=== PATIENT | female | born 1985 | race Caucasian/White ===

== ENCOUNTER 2017-05-08 07:26 | Emergency (ER) | payer MEDICAID ==
[~2017-05-08] VITALS: Ht 144.8 cm; Wt 85.5 kg
[~2017-05-08 07:26] MED LIST: ACET500C5 PO; ADV10050 INH; CEPH-443 PO; FERR-31 PO; HYDR-762 PO; IBUP-1542 PO; IBUP800T25 PO; ONDA4TAB8 PO; PREN-29 PO
[2017-05-08 07:29] VITALS: Ht 144.8 cm; Wt 85.5 kg
[2017-05-08] MEDS ORDERED: DEXAMETHASONE 10 MG/ML 1 ML INJ IM STA (07:47)
[2017-05-08] MEDS ORDERED: IPRATROPIUM (NEB) 0.5 MG/2.5 ML AMP INH STA (07:47)
[2017-05-08] MEDS ORDERED: ALBUTEROL 0.5% (NEB) 2.5 MG/0.5 ML AMP INH STA (07:47)
--- NOTE | 2017-05-08 07:53 | ERD ---
ER Documentation Chief Complaint Date/Time DATE: 05/08/17 Chief Complaint Cough, Shortness of breath HPI The patient is a 32-year-old female with a history of asthma who presents to the Emergency Department with complaint of cough, wheezing and shortness of breath. The patient reports that approximately 3 days ago she developed a mildly productive cough of yellow colored sputum with exacerbation of her underlying asthma. Since, she has been experiencing intermittent wheezing and shortness of breath. She has been using her handheld inhaler at home, with moderate, though short-term relief. Last use of her inhaler was at 2:00 AM this morning. However, by 3:30 AM she noted recurrence of her symptoms. She admits mild nasal congestion, but otherwise denies any sore throat, ear pain, neck pain , neck stiffness or new rashes. Denies any sick contacts with similar symptoms. Denies any fevers, sweats, chills, nausea or vomiting. Denies recent travel, lower extremity edema, calf swelling, calf tenderness, recent surgeries, prolonged history of immobilization, or OCP use. Denies any history of DVT or PE. Denies any chest pain or palpitations. No other complaints at this time. ROS All systems reviewed and are negative except as per history of present illness. Medications Home Meds Active Scripts Albuterol Sulfate* (Proair HFA*) 8.5 Gm Hfa.aer.ad, 2 PUFF INH Q4, #1 INHALER Prov:SHAHID GOMEZ PA-C 05/08/17 Prednisone* (Prednisone*) 20 Mg Tab, 40 MG PO DAILY for 4 Days, TAB Prov:SHAHID GOMEZ PA-C 05/08/17 Cephalexin* (Keflex*) 500 Mg Capsule, 500 MG PO QID for 7 Days, CAP Prov:DONTAE GRANADOS PA-C 03/28/16 Ondansetron Hcl* (Zofran*) 4 Mg Tablet, 4 MG PO Q6H for NAUSEA AND/OR VOMITING, #30 TAB Prov:DONTAE GRANADOS PA-C 03/28/16 Hydrocodone Bit-Acetaminophen* ([place]*) 10-325 Mg Tablet, 1 TAB PO Q6 Y for PAIN , #10 TAB Prov:DONTAE GRANADOS PA-C 03/28/16 Ibuprofen* (Motrin*) 600 Mg Tab, 600 MG PO Q6, #30 TAB Prov:DONTAE GRANADOS PA-C 03/28/16 Acetaminophen* (Tylophen*) 500 Mg Capsule, 1 CAP PO Q6H Y for PAIN AND OR ELEVATED TEMP, #20 CAP Prov:CARLOZ HOYOS NP 10/10/15 Ibuprofen* (Ibuprofen*) 800 Mg Tab, 800 MG PO Q8, #20 0 Refills Prov:LEON OLIVEROS MD 08/16/15 Reported Medications Ferrous Sulfate (Iron Supplement) 1 Tab Tablet, 1 TAB PO DAILY 05/22/15 Vit-Fe Fumarate-FA* (Justo Tablet*) 1 Tab Tablet, 1 TAB PO DAILY, TAB 05/22/15 Salmeterol Xinaf-Fluticasone* (Advair*) 1 Inh Inha, 1 PUFF INH BID, INH 03/10/14 Allergies Allergies: Coded Allergies: No Known Allergy (Verified , 05/08/17) PMhx/Soc History of Surgery: No Anesthesia Reaction: No Hx Neurological Disorder: No Hx Respiratory Disorders: Yes (asthma) Hx Cardiac Disorders: No Hx Psychiatric Problems: No Hx Miscellaneous Medical Probl: No Hx Alcohol Use: No Hx Substance Use: No Hx Tobacco Use: No Physical Exam Vitals Vital Signs Date Time Temp Pulse Resp B/P Pulse Ox O2 Delivery O2 Flow Rate FiO2 05/08/17 08:14 94 18 96 21 05/08/17 07:29 97.4 97 20 137/80 97 Physical Exam GENERAL: Well-developed, well-nourished, female, in no acute distress. HEENT: Head is normocephalic, atraumatic. No scleral pallor or icterus. Pupils equal, round and reactive to light. Extraocular movements intact. Conjunctiva pink. Nares are patent bilaterally. Bilaterally tympanic membranes are clear with no evidence of erythema, effusion or dulling of the light reflex. Moist mucous membranes. No pharyngeal erythema or exudates. Uvula is midline. No trismus. No stridor. No excessive drooling. Phonation is normal. No brawny induration. No similar swelling. NECK: Supple. No masses, no tenderness, no lymphadenopathy. Trachea midline. No nuchal rigidity. No meningismus. Full range of motion. RESPIRATORY: Decreased breath sounds at the bases with diffuse wheezes bilaterally. No rales or rhonchi. No accessory muscle use. Symmetric expansion. No nasal flaring. Speaking in full sentences. No respiratory distress. CARDIOVASCULAR: Regular rate and rhythm. S1 and S2 normal. No murmurs, rubs, or gallops. Distal pulses are palpable, 2+ bilaterally. Capillary refill is less than 2 seconds. GASTROINTESTINAL: Abdomen is soft, non-tender, and non-distended. Normal bowel sounds. BACK: No midline tenderness. EXTREMITIES: No clubbing, cyanosis, or edema. Normal skin perfusion. Joints non- tender, no joint effusion. Full range of motion of both the upper and lower extremities bilaterally. Muscle tone is normal. No focal swelling or erythema. Swelling or calf tenderness. No lower extremity edema. NEUROLOGIC: The patient is alert, awake, and oriented x 3. No focal neurologic deficits. INTEGUMENT: Skin is intact. Warm and dry. No rashes, no petechiae present. PSYCHIATRIC: Cooperative; appropriate. Results 24 hrs Current Medications Medications (Trade) Dose Ordered Sig/Love Route PRN Reason Start Time Stop Time Status Last Admin Dose Admin Albuterol (Proventil 0.5% (Neb)) 10 mg ONCE STAT INH 05/08/17 07:47 05/08/17 07:49 DC 05/08/17 08:13 Ipratropium [place] (Atrovent 0.02% (Neb)) 1 mg ONCE STAT INH 05/08/17 07:47 05/08/17 07:49 DC 05/08/17 08:13 Dexamethasone (Decadron) 10 mg ONCE STAT IM 05/08/17 07:47 05/08/17 07:49 DC 05/08/17 08:04 Procedures/MDM DIAGNOSTIC TESTS AND INTERPRETATION: PROCEDURE: XR Chest. CLINICAL INDICATION: Shortness of breath and asthma TECHNIQUE: AP view of the chest was performed. COMPARISON: 07/20/2014 FINDINGS: The lungs are clear. The lung volumes are normal. The heart size is normal. The osseous structures are intact. IMPRESSION: Negative examination. .Marta Nicole MD, MD Date Time Electronically viewed and signed by .Marta Nicole MD, on 05/08/2017 08:34 EMERGENCY DEPARTMENT COURSE: The patient was stable throughout ED course. I kept the patient informed of laboratory and diagnostic imaging results throughout the ED course. Patient is placed into ED observation status immediately after initial evaluation to determine whether the patient will require admission or can be safely discharged. The patient was placed on a continuous Albuterol treatment at 10 mg/hr, Atrovent 1 mg/hr set for the next hour. Patient will be repeatedly and frequently evaluated over the duration of the treatment. Currently the patient demonstrates moderate improvement in symptoms. Decadron 10 mg IM administered. Chest x-ray performed. On reevaluation, the patient reports significant improvement in symptoms. Lungs are now clear to auscultation bilaterally with no rales, no rhonchi, no wheezing. No accessory muscle use, no nasal flaring, no signs of respiratory distress. MEDICAL DECISION MAKING: This is a 32-year-old female presenting to the Emergency Department with recent onset of cough, nasal congestion, wheezing and shortness of breath. Patient noted to have wheezing auscultated throughout bilateral lung burns on physical examination, though with no rales, no rhonchi. She was placed in a room and observed. The patient was given a continuous 1-hour breathing treatment of Albuterol and Atrovent by respiratory therapy. Decadron 10 mg IM was also administered. After rest, a period of observation, medication and breathing treatment, the patient had resolution of her wheezing, and felt significantly better. Her lungs are now clear to auscultation bilaterally, with no rales, rhonchi or wheezing. No intercostal retractions, nasal flaring, accessory muscle use or signs of respiratory distress. Chest x-ray with no acute cardiopulmonary abnormalities. Upon review and interpretation of the patient's presentation and overall ER course, I believe the patient's symptoms to be consistent with acute bronchitis (like viral in etiology) and asthma exacerbation. Clinical presentation is not consistent with pneumonia, acute coronary syndrome, secondary bacterial infection, pulmonary embolism, acute respiratory distress syndrome, status asthmaticus, sinusitis, otitis media, otitis externa, pharyngitis, airway obstruction, anaphylaxis, pneumothorax, acute/surgical abdomen, sepsis, dehydration or meningitis. At this time, the patient is in stable condition, and no longer experiencing any wheezing or shortness of breath, and therefore can be discharged home with prescriptions for a short course of prednisone and ProAir HFA and strict return precautions for signs of deteriorating or worsening symptoms. She is advised to follow-up with her primary care provider for reevaluation and further management within 2-3 days, or return to the ER sooner for any new or worsening symptoms. I shared my medical decision making and plan with the patient at length and in great detail, and she verbally understands and agrees with the plan for further observation and care as an outpatient. At the time of discharge, all questions were answered. Departure Diagnosis: Primary Impression: Asthma with acute exacerbation Asthma severity: unspecified severity Qualified Code: J45.901 - Asthma with acute exacerbation, unspecified asthma severity Additional Impression: Acute bronchitis Bronchitis organism: unspecified organism Qualified Code: J20.9 - Acute bronchitis, unspecified organism Condition: Stable Patient Instructions: Asthma, Acute (Adult), Bronchitis, No Antibiotic (Adult) , Understanding Asthma Additional Instructions: Llame al doctor MAANA y kay joanna REINALDO PARA DENTRO DE 2-3 EATON.Dgale a la secretaria que nosotros le instruimos hacer esta reinaldo.Avise o llame si moya condicin se empeora antes de la reinaldo. Regresa aqui si peor o no mejor. SHAHID GOMEZ PA-C May 08, 2017 07:53
--- NOTE | 2017-05-08 08:35 | RADRPT ---
PROCEDURE: XR Chest. CLINICAL INDICATION: Shortness of breath and asthma TECHNIQUE: AP view of the chest was performed. COMPARISON: 07/20/2014 FINDINGS: The lungs are clear. The lung volumes are normal. The heart size is normal. The osseous structure s are intact. IMPRESSION: Negative examination. RPTAT: QQ .Marta Nicole MD, Date Time Electronically viewed and signed by .Marta Nicole MD, on 05/08/2017 08:34 .M/
[2017-05-08] MEDS ORDERED: ALBU8.5H3 INH (09:22)
[2017-05-08] MEDS ORDERED: PRED20TA PO (09:22)
[2017-05-08 09:29] VITALS: BP 128/67; PULSE 92; RESP 20
== END 2017-05-08 09:30 | disposition home or self-care (01) ==
LOC: E/R 07:26
DX: J45.901 Unspecified asthma with (acute) exacerbation (principal); J20.9 Acute bronchitis, unspecified
CPT/HCPCS: 71010; 94644; 96372; J1100; Z7502; Z7610

== ENCOUNTER 2017-05-16 13:12 | Emergency (ER) | payer MEDICAID ==
[~2017-05-16] VITALS: Ht 154.9 cm; Wt 84.0 kg
[~2017-05-16 13:12] MED LIST changes: +ALBU8.5H3 INH; +PRED20TA PO
[2017-05-16 13:14] VITALS: Ht 154.9 cm; Wt 84.0 kg
[2017-05-16] MEDS ORDERED: IPRATROPIUM (NEB) 0.5 MG/2.5 ML AMP NEB STA (14:07)
[2017-05-16] MEDS ORDERED: ALBUTEROL 0.5% (NEB) 2.5 MG/0.5 ML AMP INH STA (14:07)
[2017-05-16] MEDS ORDERED: METHYLPREDNISOLONE 125 MG INJ IM ONE (14:30)
--- NOTE | 2017-05-16 14:30 | ERD ---
ER Documentation Chief Complaint Date/Time DATE: 05/16/17 TIME: 14:29 Chief Complaint Pt with SOB X 3 days. Pt asthmatic HPI 32-year-old female history of asthma presents with cough, nasal congestion and shortness of breath starting yesterday. She complains of shortness of breath despite using her inhaler. She has not had any documented fevers but reports tactile fevers. ROS All systems reviewed and are negative except as per history of present illness. Medications Home Meds Active Scripts Albuterol Sulfate* (Proair HFA*) 8.5 Gm Hfa.aer.ad, 2 PUFF INH Q4, #1 INHALER Prov:YOON SAVAGE PA-C 05/16/17 Prednisone* (Prednisone*) 20 Mg Tab, 40 MG PO DAILY for 4 Days, TAB Prov:YOON SAVAGE PA-C 05/16/17 Amoxicillin/Potassium Clav (Amox-Clav 875-125 mg Tablet) 875-125 mg Tab, 1 TAB PO BID for 7 Days, #14 TAB Prov:YOON SAVAGE PA-C 05/16/17 Albuterol Sulfate* (Proair HFA*) 8.5 Gm Hfa.aer.ad, 2 PUFF INH Q4, #1 INHALER Prov:SHAHID GOMEZ PA-C 05/08/17 Prednisone* (Prednisone*) 20 Mg Tab, 40 MG PO DAILY for 4 Days, TAB Prov:SHAHID GOMEZ PA-C 05/08/17 Cephalexin* (Keflex*) 500 Mg Capsule, 500 MG PO QID for 7 Days, CAP Prov:DONTAE GRANADOS PA-C 03/28/16 Ondansetron Hcl* (Zofran*) 4 Mg Tablet, 4 MG PO Q6H for NAUSEA AND/OR VOMITING, #30 TAB Prov:DONTAE GRANADOS PA-C 03/28/16 Hydrocodone Bit-Acetaminophen* ([place]*) 10-325 Mg Tablet, 1 TAB PO Q6 Y for PAIN , #10 TAB Prov:DONTAE GRANADOS PA-C 03/28/16 Ibuprofen* (Motrin*) 600 Mg Tab, 600 MG PO Q6, #30 TAB Prov:DONTAE GRANADOS PA-C 03/28/16 Acetaminophen* (Tylophen*) 500 Mg Capsule, 1 CAP PO Q6H Y for PAIN AND OR ELEVATED TEMP, #20 CAP Prov:CARLOZ HOYOSLiliana TACK COVERER 10/10/15 Ibuprofen* (Ibuprofen*) 800 Mg Tab, 800 MG PO Q8, #20 0 Refills Prov:LEON OLIVEROS MD 08/16/15 Reported Medications Ferrous Sulfate (Iron Supplement) 1 Tab Tablet, 1 TAB PO DAILY 05/22/15 Vit-Fe Fumarate-FA* (Justo Tablet*) 1 Tab Tablet, 1 TAB PO DAILY, TAB 05/22/15 Salmeterol Xinaf-Fluticasone* (Advair*) 1 Inh Inha, 1 PUFF INH BID, INH 03/10/14 Allergies Allergies: Coded Allergies: No Known Allergy (Verified , 05/08/17) PMhx/Soc History of Surgery: No Anesthesia Reaction: No Hx Neurological Disorder: No Hx Respiratory Disorders: Yes (asthma ) Hx Cardiac Disorders: No Hx Psychiatric Problems: No Hx Miscellaneous Medical Probl: No Hx Alcohol Use: No Hx Substance Use: No Hx Tobacco Use: No Physical Exam Vitals Vital Signs Date Time Temp Pulse Resp B/P Pulse Ox O2 Delivery O2 Flow Rate FiO2 05/16/17 16:04 119 22 95 Room Air 05/16/17 14:39 115 22 95 21 05/16/17 13:14 98.7 115 22 142/73 95 Physical Exam General: Well-developed, well-nourished. The patient appears in no acute distress. HEENT: Head is normocephalic, atraumatic. No scleral icterus. Pupils are equal , round, and reactive. Oral mucous membranes are moist. No pharyngeal erythema. Neck: Supple. Nontender. Lungs: Wheezing bilaterally, no rales or rhonchi. Heart: Regular rate and rhythm. S1 and S2 are normal. No murmurs, gallops, or rubs. Abdomen: Soft, nontender, nondistended. Bowel sounds are normoactive. Extremities: No clubbing or cyanosis. Normal pulses. Moving extremities x 4. No weakness. Neurologic: Alert and oriented 3. No focal deficits. Skin: Normal turgor. No rash or lesions. Results 24 hrs Current Medications Medications (Trade) Dose Ordered Sig/Love Route PRN Reason Start Time Stop Time Status Last Admin Dose Admin Ipratropium [place] (Atrovent 0.02% (Neb)) 1 mg ONCE STAT NEB 05/16/17 14:07 05/16/17 14:11 DC 05/16/17 14:39 Albuterol (Proventil 0.5% (Neb)) 10 mg ONCE STAT INH 05/16/17 14:07 05/16/17 14:11 DC 05/16/17 14:39 Methylprednisolone Sodium Succinate (Solu-Medrol) 125 mg ONCE ONCE IM 05/16/17 14:30 05/16/17 14:31 DC 05/16/17 14:22 DIAGNOSTIC IMAGING REPORT Patient: YVONNE SOLORIO : 1985 Age: 32 Sex: F MR #: [id number] DOS: 05/16/17 1407 Ordering MD: YOON SAVAGE PA-C Location: [facility] Room/Bed: PROCEDURE: XR Chest. CLINICAL INDICATION: chest pain, cough TECHNIQUE: Single frontal view of the chest was obtained COMPARISON: 07/20/14 FINDINGS: The heart and mediastinum are within normal limits. The lungs are clear. There is no pleural effusion or pneumothorax. RPTAT: AA IMPRESSION: No acute disease. .Ap Johnston MD, MD Date Time Electronically viewed and signed by .Ap Johnston MD, MD on 05/16/2017 14: 38 Procedures/MDM 32 yo male comes in with an asthma exacerbation, with cough for the past week. She has been having URI symptoms for over a week now. Chest x-ray was unremarkable, no evidence of pneumonia. Patient will be treated for bronchitis given her symptoms for approximately a week. She appears well, nontoxic, and does not have any signs of any respiratory distress. There is no evidence of hypoxia vitals are stable. She was observed in emergency department, heart rate was reduced to 98. Suspicion for pulmonary embolus, dissection, acute coronary syndrome is low. Departure Diagnosis: Primary Impression: Asthma attack Additional Impression: Cough Condition: Good YOON SAVAGE PA-C May 16, 2017 14:30
--- NOTE | 2017-05-16 14:38 | RADRPT ---
PROCEDURE: XR Chest. CLINICAL INDICATION: chest pain, cough TECHNIQUE: Single frontal view of the chest was obtained COMPARISON: 07/20/14 FINDINGS: The heart and mediastinum are within normal limits. The lungs are clear. There is no pleural effusion or pneumothorax. RPTAT: AA IMPRESSION: No acute disease. .Ap Johnston MD, MD Date Time Electronically viewed and signed by .Ap Johnston MD, on 05/16/2017 14:38 .S/
[2017-05-16] MEDS ORDERED: ALBU8.5H3 INH (15:46)
[2017-05-16] MEDS ORDERED: AMOX1TAB10 PO (15:46)
[2017-05-16] MEDS ORDERED: PRED20TA PO (15:46)
[2017-05-16 16:04] VITALS: PULSE 119; RESP 22
== END 2017-05-16 16:06 | disposition home or self-care (01) ==
LOC: FTE 13:12
DX: J45.901 Unspecified asthma with (acute) exacerbation (principal); R05 Cough
CPT/HCPCS: 71010; 94644; 96372; J2930; Z7502; Z7610

== ENCOUNTER 2017-09-24 09:18 | Emergency (ER) | payer MEDICAID ==
[~2017-09-24] VITALS: Ht 162.6 cm; Wt 86.5 kg
[~2017-09-24 09:18] MED LIST changes: +AMOX1TAB10 PO
[2017-09-24 09:21] VITALS: Ht 162.6 cm; Wt 86.5 kg
[2017-09-24] MEDS ORDERED: IPRATROPIUM (NEB) 0.5 MG/2.5 ML AMP INH STA (09:55)
[2017-09-24] MEDS ORDERED: predniSOLONE (3 MG/ML) CUP PO STA (09:55)
[2017-09-24] MEDS ORDERED: ALBUTEROL 0.5% (NEB) 2.5 MG/0.5 ML AMP INH STA (09:55)
[2017-09-24] MEDS ORDERED: ALBU8.5H3 INH (12:02)
[2017-09-24] MEDS ORDERED: PRED20TA PO (12:02)
[2017-09-24] MEDS ORDERED: FLUT9.9S NASAL (12:03)
[2017-09-24] MEDS ORDERED: MONT10TA21 PO (12:03)
[2017-09-24] MEDS ORDERED: CETI10CA PO (12:03)
[2017-09-24] MEDS ORDERED: UDROBDM PO (12:05)
[2017-09-24 12:13] VITALS: BP 120/70; PULSE 87; RESP 18; TEMP 98.1
--- NOTE | 2017-09-24 12:13 | ERD ---
ER Documentation Chief Complaint Chief Complaint cough , chest congestion x 1 week HPI This a 32-year-old female who presents the emergency department today complaining of cough for the past week. States that she has itchy eyes and ears. Has a history of asthma and that she uses a ProAir inhaler and Singulair but has been out of her medications for the past 3 days. Denies any fevers or chills. ROS All systems reviewed and are negative except as per history of present illness. Medications Home Meds Active Scripts Guaifenesin-Dextromethorphan* (Robitussin* DM) 100MG/10MG/5ML Syrup, 10 ML PO Q6H Y for COUGH for 5 Days, ML Prov:DONTAE GRANADOS PA-C 09/24/17 Cetirizine Hcl* (Zyrtec*) 10 Mg Capsule, 10 MG PO DAILY, #14 TAB.CHEW Prov:DONTAE GRANADOS PA-C 09/24/17 Fluticasone Propionate (Flonase Allergy Relief) 9.9 Ml [place].susp, 2 SPRAY NASAL DAILY, #1 BOTTLE TO EACH NOSTRIL Prov:DONTAE GRANADOS PA-C 09/24/17 Montelukast Sodium* (Singulair*) 10 Mg Tablet, 10 MG PO QHS, #30 TAB Prov:DONTAE GRANADOS PA-C 09/24/17 Albuterol Sulfate* (Proair HFA*) 8.5 Gm Hfa.aer.ad, 2 PUFF INH Q4, #1 INHALER Prov:DONTAE GRANADOS PA-C 09/24/17 Prednisone* (Prednisone*) 20 Mg Tab, 40 MG PO DAILY for 4 Days, TAB Prov:DONTAE GRANADOS PA-C 09/24/17 Albuterol Sulfate* (Proair HFA*) 8.5 Gm Hfa.aer.ad, 2 PUFF INH Q4, #1 INHALER Prov:YOON SAVAGE PA-C 05/16/17 Prednisone* (Prednisone*) 20 Mg Tab, 40 MG PO DAILY for 4 Days, TAB Prov:YOON SAVAGE PA-C 05/16/17 Amoxicillin/Potassium Clav (Amox-Clav 875-125 mg Tablet) 875-125 mg Tab, 1 TAB PO BID for 7 Days, #14 TAB Prov:YOON SAVAGE PA-C 05/16/17 Albuterol Sulfate* (Proair HFA*) 8.5 Gm Hfa.aer.ad, 2 PUFF INH Q4, #1 INHALER Prov:SHAHID GOMEZ PA-C 05/08/17 Prednisone* (Prednisone*) 20 Mg Tab, 40 MG PO DAILY for 4 Days, TAB Prov:SHAHID GOMEZ PA-C 05/08/17 Cephalexin* (Keflex*) 500 Mg Capsule, 500 MG PO QID for 7 Days, CAP Prov:DONTAE GRANADOSC 03/28/16 Ondansetron Hcl* (Zofran*) 4 Mg Tablet, 4 MG PO Q6H for NAUSEA AND/OR VOMITING, #30 TAB Prov:DONTAE GRANADOSC 03/28/16 Hydrocodone Bit-Acetaminophen* ([place]*) 10-325 Mg Tablet, 1 TAB PO Q6 Y for PAIN , #10 TAB Prov:DONTAE GRANADOSC 03/28/16 Ibuprofen* (Motrin*) 600 Mg Tab, 600 MG PO Q6, #30 TAB Prov:DONTAE GRANADOSC 03/28/16 Acetaminophen* (Tylophen*) 500 Mg Capsule, 1 CAP PO Q6H Y for PAIN AND OR ELEVATED TEMP, #20 CAP Prov:CARLOZ HOYOS NP 10/10/15 Ibuprofen* (Ibuprofen*) 800 Mg Tab, 800 MG PO Q8, #20 0 Refills Prov:LEON OLIVEROS MD 08/16/15 Reported Medications Ferrous Sulfate (Iron Supplement) 1 Tab Tablet, 1 TAB PO DAILY 05/22/15 Vit-Fe Fumarate-FA* (Justo Tablet*) 1 Tab Tablet, 1 TAB PO DAILY, TAB 05/22/15 Salmeterol Xinaf-Fluticasone* (Advair*) 1 Inh Inha, 1 PUFF INH BID, INH 03/10/14 Allergies Allergies: Coded Allergies: No Known Allergy (Verified , 05/08/17) PMhx/Soc Medical and Surgical Hx: pt denies Surgical Hx History of Surgery: No Anesthesia Reaction: No Hx Neurological Disorder: No Hx Respiratory Disorders: Yes (asthma ) Hx Cardiac Disorders: No Hx Psychiatric Problems: No Hx Miscellaneous Medical Probl: No Hx Alcohol Use: No Hx Substance Use: No Hx Tobacco Use: No Smoking Status: Never smoker Physical Exam Vitals Vital Signs Date Time Temp Pulse Resp B/P Pulse Ox O2 Delivery O2 Flow Rate FiO2 09/24/17 10:34 92 20 96 21 09/24/17 09:21 98.1 95 18 109/71 95 Physical Exam Const: NAD Head: Atraumatic Eyes: Normal Conjunctiva erythema. Watering. ENT: TMs normal. Nose mild drainage. Throat erythema no exudate no vesicles Neck: Full range of motion..~ No meningismus. Resp: Diffuse wheezing bilaterally in all lung burns. Cardio: Regular rate and rhythm, no murmurs Abd: Soft, non tender, non distended. Normal bowel sounds Skin: No petechiae or rashes Back: No midline or flank tenderness Ext: No cyanosis, or edema Neur: Awake and alert Psych: Normal Mood and Affect Results 24 hrs Current Medications Medications (Trade) Dose Ordered Sig/Love Route PRN Reason Start Time Stop Time Status Last Admin Dose Admin Albuterol (Proventil 0.5% (Neb)) 5 mg ONCE STAT INH 09/24/17 09:55 09/24/17 09:57 DC 09/24/17 09:55 Ipratropium [place] (Atrovent 0.02% (Neb)) 1 mg ONCE STAT INH 09/24/17 09:55 09/24/17 09:57 DC 09/24/17 09:55 Prednisolone (Prelone) 173 mg ONCE STAT PO 09/24/17 09:55 09/24/17 09:57 DC 09/24/17 10:07 Procedures/MDM This is a 32-year-old female presents the emergency department today complaining of cough for the past week. She also indicated that she has had itchy eyes and ears for the past week. Patient is a history of asthma and has been out of her asthma medications for the past 3 days. On physical exam patient had diffuse wheezing bilaterally in all lung burns. She is afebrile and otherwise well-appearing. Her oxygen saturation 95%. Do not feel she requires a chest x-ray at this time. I have low suspicion for pneumonia, PE, abscess, pleural effusion, pneumothorax. Patient was given a 1 hour continuous breathing treatment as well as prednisone here in the emergency department and she reported feeling significantly better. Her symptoms at this time is consistent with asthma exacerbation. She was given a prescription for Robitussin, Zyrtec, Flonase, and a short course of prednisone in addition to refills for her Singulair and ProAir inhaler. Do not feel that she requires antibiotics at this time. At this time the patient is stable for discharge and outpatient management. Patient should follow up with their PCP in the next 1-2 days. They may return to the emergency department sooner for any persistent or worsening of symptoms. Patient understood and agreed with the plan. Discussed the patient with Dr. Burt and he is in agreement with the plan Departure Diagnosis: Primary Impression: Asthma exacerbation Asthma severity: unspecified severity Asthma persistence: unspecified Qualified Code: J45.901 - Exacerbation of asthma, unspecified asthma severity, unspecified whether persistent Condition: Fair Patient Instructions: Asthma, Acute (Adult) Referrals: your PCP Additional Instructions: Llame al doctor MAANA y kay joanna REINALDO PARA DENTRO DE 1-2 EATON.Dgale a la secretaria que nosotros le instruimos hacer esta reinaldo.Avise o llame si moya condicin se empeora antes de la reinaldo. Regresa aqui si peor o no mejor. Take your usual asthma medications. take prednisone Take Zyrtec and Flonase to help with itchy eyes and ears. Take Robitussin for cough DONTAE GRANADOS PA-C Sep 24, 2017 12:13
== END 2017-09-24 12:14 | disposition home or self-care (01) ==
LOC: FTE 09:18
DX: J45.901 Unspecified asthma with (acute) exacerbation (principal)
CPT/HCPCS: 94664; J7510; Z7502; Z7610

== ENCOUNTER 2017-12-05 10:34 | Emergency (ER) | END 2017-12-05 13:39 | disposition home or self-care (01) ==

== ENCOUNTER 2018-03-27 13:31 | Emergency (ER) | END 2018-03-27 14:56 | disposition home or self-care (01) ==

== ENCOUNTER 2018-06-23 01:05 | Emergency (ER) | END 2018-06-23 05:25 | disposition home or self-care (01) ==

== ENCOUNTER 2018-08-07 09:11 | Emergency (ER) | END 2018-08-07 11:30 | disposition home or self-care (01) ==

== ENCOUNTER 2018-09-13 09:53 | Emergency (ER) | END 2018-09-13 13:07 | disposition home or self-care (01) ==

== ENCOUNTER 2018-10-10 10:06 | Emergency (ER) | payer MEDICAID ==
[~2018-10-10] VITALS: Ht 167.6 cm; Wt 90.2 kg
[~2018-10-10 10:06] MED LIST changes: -ACET500C5 PO; -ALBU8.5H3 INH; +ALBU8.5H8 INH; -AMOX1TAB10 PO; +AZIT250T PO; -CEPH-443 PO; +CETI10CA PO; -FERR-31 PO; -HYDR-762 PO; -IBUP-1542 PO; -IBUP800T25 PO; -ONDA4TAB8 PO; -PREN-29 PO
[2018-10-10 10:14] VITALS: Ht 167.6 cm; Wt 90.2 kg
[2018-10-10] MEDS ORDERED: IPRATROPIUM (NEB) 0.5 MG/2.5 ML AMP NEB STA ×2 (10:31→11:37)
[2018-10-10] MEDS ORDERED: METHYLPREDNISOLONE 125 MG INJ IM STA (10:31)
[2018-10-10] MEDS ORDERED: ALBUTEROL 0.5% (NEB) 2.5 MG/0.5 ML AMP INH STA ×2 (10:31→11:37)
[2018-10-10] MEDS ORDERED: ALBU8.5H8 INH (12:47)
[2018-10-10] MEDS ORDERED: PRED20TA PO (12:47)
--- NOTE | 2018-10-10 12:53 | ERD ---
ER Documentation Chief Complaint Chief Complaint Complains of SOB and cough x 3 days HPI Patient is a 33-year-old female who presents the ER for concerns of an asthma exacerbation. Patient states she tried using her inhaler with little alleviation of symptoms. Patient reports shortness of breath and wheezing. Pat ient denies any chest pain. Patient denies any fevers, chills, nausea, vomiting, abdominal pain, leg swelling, recent travel, recent surgeries. Patient states her cough is dry in nature. She denies any hemoptysis. Patient is requesting refill of her albuterol inhaler she states she is ran out. ROS All systems reviewed and are negative except as per history of present illness. Medications Home Meds Active Scripts Albuterol Sulfate* (Proair HFA*) 8.5 Gm Hfa.aer.ad, 2 PUFF INH Q4, #1 INHALER Prov:ACE MELARA PA-C 10/10/18 Prednisone* (Prednisone*) 20 Mg Tab, 60 MG PO DAILY for 4 Days, TAB Prov:ACE MELARA PA-C 10/10/18 Azithromycin* (Zithromax*) 250 Mg Tablet, 250 MG PO .ZPACK DIRECTED, #6 TAB TAKE 500 MG (2 TABS) THE FIRST DAY THEN 250 MG (1 TAB) DAYS 2-5 Prov:JOSE MARIA HUGHES MD 09/13/18 Prednisone* (Prednisone*) 20 Mg Tab, 60 MG PO DAILY for 4 Days, TAB Prov:JOSE MARIA HUGHES MD 09/13/18 Albuterol Sulfate* (Proair HFA*) 8.5 Gm Hfa.aer.ad, 2 PUFF INH Q4H PRN for WH EEZING AND SOB, #1 INHALER Prov:JOSE MARIA HUGHES MD 09/13/18 Albuterol Sulfate* (Proair HFA*) 8.5 Gm Hfa.aer.ad, 2 PUFF INH Q6H PRN for WHEEZING AND SOB, #1 INHALER Prov:LAKESHIA SPRINGER MD 08/07/18 Cetirizine Hcl* (Zyrtec*) 10 Mg Capsule, 10 MG PO DAILY, #30 TAB.CHEW Prov:LIBBY FLORES PA-C 03/27/18 Albuterol Sulfate* (Proair HFA*) 8.5 Gm Hfa.aer.ad, 2 PUFF INH Q4, #1 INHALER Prov:DONTAE GRANADOS PA-C 09/24/17 Reported Medications Salmeterol Xinaf-Fluticasone* (Advair*) 1 Inh Inha, 1 PUFF INH BID, INH 03/10/14 Allergies Allergies: Coded Allergies: No Known Allergy (Verified , 10/10/18) PMhx/Soc History of Surgery: Yes (GALL STONES,C/S) Anesthesia Reaction: No Hx Neurological Disorder: No Hx Respiratory Disorders: Yes (asthma, bronchitis ) Hx Cardiac Disorders: No Hx Psychiatric Problems: No Hx Miscellaneous Medical Probl: No Hx Alcohol Use: No Hx Substance Use: No Hx Tobacco Use: No FmHx Family History: No diabetes Physical Exam Vitals Vital Signs Date Temp Pulse Resp B/P (MAP) Pulse Ox O2 O2 Flow FiO2 Time Delivery Rate 10/10/18 88 20 96 21 10:54 10/10/18 98.0 88 20 110/58 96 10:14 (75) Physical Exam GENERAL: Well-developed, well-nourished female. Appears in no acute distress. Speaking in full sentences. HEAD: Normocephalic, atraumatic. EYES: Pupils are equally reactive bilaterally. EOMs grossly intact. No conjunctival erythema. ENT: Moist mucous membranes. No uvula deviation. No kissing tonsils. NECK: Supple. No meningismus. Normal range of motion of the neck. LUNG: Tight breath sounds noted. Minimal air movement. Faint expiratory wheezing noted. No abdominal retractions, no nasal flaring, no tripoding. HEART: Regular rate and rhythm. No murmurs, rubs or gallops. EXTREMITIES: Equal pulses bilaterally. No peripheral clubbing, cyanosis or edema. No unilateral leg swelling. NEUROLOGIC: Alert and oriented. Moving all four extremities without any difficulty. Normal speech. Steady gait. SKIN: Normal color. Warm and dry. No rashes or lesions. Results 24 hrs Current Medications Medications Dose Sig/Love Start Time Status Last (Trade) Ordered Route PRN Stop Time Admin Dose Reason Admin Ipratropium 1 mg ONCE STAT 10/10/18 DC 10/10/18 Pringle NEB 10:31 10:54 (Atrovent 12/25/18 0.02% 10:32 (Neb)) Albuterol 10 mg ONCE STAT 10/10/18 DC 10/10/18 (Proventil INH 10:31 10:54 0.5% (Neb)) 10/10/18 10:32 125 mg ONCE STAT 10/10/18 DC 10/10/18 Methylprednis IM 10:31 10:34 olone Sodium 10/10/18 Succinate 10:32 (Solu-Medrol) Ipratropium 1 mg ONCE STAT 10/10/18 DC 10/10/18 Pringle NEB 11:37 11:53 (Atrovent 10/10/18 0.02% 11:41 (Neb)) Albuterol 10 mg ONCE STAT 10/10/18 DC 10/10/18 (Proventil INH 11:37 11:53 0.5% (Neb)) 10/10/18 11:41 Procedures/MDM DIAGNOSTIC IMAGING REPORT Patient: YVONNE SOLORIO : 1985 Age: 33 Sex: F MR #: [id number] DOS: 10/10/18 1031 Ordering MD: ACE MELARA PA-C Location: FTE Room/Bed: PROCEDURE: XR Chest. CLINICAL INDICATION: Asthma exacerbation. Dyspnea. TECHNIQUE: Single frontal chest x-ray. COMPARISON: 08/07/2018 FINDINGS: The lungs are clear with exception of mild increased atelectasis in the lung bases. No focal opacification is seen. The cardiomediastinal silhouette is unremarkable. The osseous structures are unremarkable. IMPRESSION: 1. Mild increased basilar atelectasis. 2. Otherwise, unremarkable chest x-ray. RPTAT: PP .Christian Saldivar MD, MD Date Time Electronically viewed and signed by .Christian Saldivar MD, MD on 10/10/2018 10:49 .B/ CC: ACE MELARA PA-C [id number] Departure Diagnosis: Primary Impression: Asthma exacerbation Asthma severity: unspecified severity Asthma persistence: unspecified Qualified Codes: J45.901 - Unspecified asthma with (acute) exacerbation Condition: Fair Patient Instructions: Understanding Asthma Triggers Referrals: [facility] YOU HAVE RECEIVED A MEDICAL SCREENING EXAM AND THE RESULTS INDICATE THAT YOU DO NOT HAVE A CONDITION THAT REQUIRES URGENT TREATMENT IN THE EMERGENCY DEPARTMENT. FURTHER EVALUATION AND TREATMENT OF YOUR CONDITION CAN WAIT UNTIL YOU ARE SEEN IN YOUR DOCTORS OFFICE WITHIN THE NEXT 1-2 DAYS. IT IS YOUR RESPONSIBILITY TO MAKE AN APPOINTMENT FOR FOLOW-UP CARE. IF YOU HAVE A PRIMARY DOCTOR --you should call your primary doctor and schedule an appointment IF YOU DO NOT HAVE A PRIMARY DOCTOR YOU CAN CALL OUR PHYSICIAN REFERRAL HOTLINE AT IF YOU CAN NOT AFFORD TO SEE A PHYSICIAN YOU CAN CHOSE FROM THE FOLLOWING [facility] [address] [facility]. [facility] [address] [facility] [address] [facility] [address] [facility] [address] [facility]. [facility] [address] [facility] [facility] YOU HAVE RECEIVED A MEDICAL SCREENING EXAM AND THE RESULTS INDICATE THAT YOU DO NOT HAVE A CONDITION THAT REQUIRES URGENT TREATMENT IN THE EMERGENCY DEPARTMENT. FURTHER EVALUATION AND TREATMENT OF YOUR CONDITION CAN WAIT UNTIL YOU ARE SEEN IN YOUR DOCTORS OFFICE WITHIN THE NEXT 1-2 DAYS. IT IS YOUR RESPONSIBILITY TO MAKE AN APPOINTMENT FOR FOLOW-UP CARE. IF YOU HAVE A PRIMARY DOCTOR --you should call your primary doctor and schedule and appointment IF YOU DO NOT HAVE A PRIMARY DOCTOR YOU CAN CALL OUR PHYSICIAN REFERRAL HOTLINE AT . IF YOU CAN NOT AFFORD TO SEE A PHYSICIAN YOU CAN CHOSE FROM THE FOLLOWING [facility] INSTITUTIONS: [facility] [address] [place] [address] [facility] [address] [place] [address] [facility] [address] [place] [address] [facility] U[facility]ENT [facility]/SPECIALTIES Additional Instructions: Call your primary care doctor TOMORROW for an appointment during the next 1-2 days.See the doctor sooner or return here if your condition worsens before your appointment time. ACE MELARA PA-C Oct 10, 2018 12:53
[2018-10-10 12:57] VITALS: BP 124/68; PULSE 108; RESP 18
== END 2018-10-10 12:58 | disposition home or self-care (01) ==
LOC: FTE 10:06
DX: J45.901 Unspecified asthma with (acute) exacerbation (principal)
CPT/HCPCS: 71045; 94644; 96372; J2930; Z7502; Z7610

== ENCOUNTER 2018-10-24 08:41 | Emergency (ER) | payer MEDICAID ==
[~2018-10-24] VITALS: Ht 160 cm; Wt 91.4 kg
[2018-10-24 08:43] VITALS: BP 142/79; PULSE 90; RESP 18; Ht 160 cm; Wt 91.4 kg
[2018-10-24] MEDS ORDERED: IBUPROFEN 600 MG TAB PO ONE (09:00)
[2018-10-24] MEDS ORDERED: IBUP-1542 PO (09:49)
--- NOTE | 2018-10-24 10:22 | ERD ---
ER Documentation Chief Complaint Chief Complaint left arm pain x 2 weeks HPI This is a 33-year-old female with a nonsignificant past medical history presents ED with complaints of left hand, left wrist and left forearm pain times 2 weeks. Patient denies any fall or injury to account for pain. Patient states that she is continuously picking up child and started experiencing this pain. Denies decreased range of motion, tingling, numbness, lack sensation, fever, chills and other symptoms ROS All systems reviewed and are negative except as per history of present illness. Medications Home Meds Active Scripts Ibuprofen* (Motrin*) 600 Mg Tab, 600 MG PO Q6, #30 TAB Prov:ABELINO SAWYER PA-C 10/24/18 Albuterol Sulfate* (Proair HFA*) 8.5 Gm Hfa.aer.ad, 2 PUFF INH Q4, #1 INHALER Prov:ACE MELARA PA-C 10/10/18 Prednisone* (Prednisone*) 20 Mg Tab, 60 MG PO DAILY for 4 Days, TAB Prov:ACE MELARA PA-C 10/10/18 Azithromycin* (Zithromax*) 250 Mg Tablet, 250 MG PO .ZPACK DIRECTED, #6 TAB TAKE 500 MG (2 TABS) THE FIRST DAY THEN 250 MG (1 TAB) DAYS 2-5 Prov:JOSE MARIA HUGHES MD 09/13/18 Prednisone* (Prednisone*) 20 Mg Tab, 60 MG PO DAILY for 4 Days, TAB Prov:JOSE MARIA HUGHES MD 09/13/18 Albuterol Sulfate* (Proair HFA*) 8.5 Gm Hfa.aer.ad, 2 PUFF INH Q4H PRN for WHEEZING AND SOB, #1 INHALER Prov:JOSE MARIA HUGHES MD 09/13/18 Albuterol Sulfate* (Proair HFA*) 8.5 Gm Hfa.aer.ad, 2 PUFF INH Q6H PRN for WHEEZING AND SOB, #1 INHALER Prov:LAKESHIA SPRINGER MD 08/07/18 Cetirizine Hcl* (Zyrtec*) 10 Mg Capsule, 10 MG PO DAILY, #30 TAB.CHEW Prov:LIBBY FLORES PA-C 6/11/18 Albuterol Sulfate* (Proair HFA*) 8.5 Gm Hfa.aer.ad, 2 PUFF INH Q4, #1 INHALER Prov:DONTAE GRANADOS PA-C 09/24/17 Reported Medications Salmeterol Xinaf-Fluticasone* (Advair*) 1 Inh Inha, 1 PUFF INH BID, INH 03/10/14 Allergies Allergies: Coded Allergies: No Known Allergy (Verified , 10/10/18) PMhx/Soc History of Surgery: Yes (GALL STONES,C/S) Anesthesia Reaction: No Hx Neurological Disorder: No Hx Respiratory Disorders: Yes (asthma, bronchitis ) Hx Cardiac Disorders: No Hx Psychiatric Problems: No Hx Miscellaneous Medical Probl: No Hx Alcohol Use: No Hx Substance Use: No Hx Tobacco Use: No Smoking Status: Never smoker FmHx Family History: No diabetes Physical Exam Vitals Vital Signs Date Temp Pulse Resp B/P (MAP) Pulse Ox O2 O2 Flow FiO2 Time Delivery Rate 10/24/18 97.9 90 18 142/79 97 08:43 (100) Physical Exam Const: No acute distress Head: Atraumatic Eyes: Normal Conjunctiva ENT: Normal External Ears, Nose and Mouth. Neck: Full range of motion. No meningismus. Resp: Clear to auscultation bilaterally Cardio: Regular rate and rhythm, no murmurs Ext: No cyanosis, or edema Upper Extremity - LEFT Skin: No laceration, or evidence of external trauma Compartments: Soft Motor: Full active range of motion shoulder/elbow/wrist/hand Sensation: Intact shoulder/pinky/middle finger/thumb web space Bones: Nontender humerus/elbow/forearm/wrist/hand Snuffbox: Nontender Joints: No effusion Pulses/Perfusion: 2+ radial, Capillary refill < 2 seconds Results 24 hrs Laboratory Tests Test 10/24/18 09:11 POC Beta HCG, Qualitative NEGATIVE Current Medications Medications Dose Sig/Love Start Time Status Last (Trade) Ordered Route PRN Stop Time Admin Dose Reason Admin Ibuprofen 600 mg ONCE ONCE 10/24/18 DC 10/24/18 (Motrin) PO 09:00 10/24/18 09:14 09:01 Procedures/MDM EKG, MONITORS, & DIAGNOSTIC IMAGING: [place] [address] Radiology Main Line: [phone] DIAGNOSTIC IMAGING REPORT Patient: YVONNE SOLORIO : 1985 Age: 33 Sex: F MR #: [id number] DOS: 10/24/1858 Ordering MD: ABELINO SAWYER PA-C Location: FTE Room/Bed: PROCEDURE: XR Forearm. CLINICAL INDICATION: pain TECHNIQUE: AP and lateral views of the left forearm were obtained. COMPARISON: No prior studies are available for comparison. FINDINGS: There is normal mineralization and alignment. No acute fracture or osseous lesion is identified. The soft tissues are unremarkable. RPTAT: AA IMPRESSION: Unremarkable left forearm. .Ap Johnston MD, Date Time Electronically viewed and signed by .Ap Johnston MD, MD on 10/24/2018 09:23 .S/ CC: ABELINO SAWYER PA-C [id number] [place] [address] Radiology Main Line: [phone] DIAGNOSTIC IMAGING REPORT Patient: YVONNE SOLORIO : 1985 Age: 33 Sex: F MR #: [id number] DOS: 10/24/1858 Ordering MD: ABELINO SAWYER PA-C Location: FTE Room/Bed: PROCEDURE: Left hand x-ray CLINICAL INDICATION: pain TECHNIQUE: AP, lateral and oblique views of the left hand were obtained. COMPARISON: None FINDINGS: There is normal mineralization. No acute fracture or dislocation is seen. There are no significant degenerative changes. There is no significant soft tissue swelling. RPTAT: AA IMPRESSION: Normal x-ray of the left hand x-ray . .Ap Johnston MD, MD Date Time Electronically viewed and signed by .Ap Johnston MD, MD on 10/24/2018 09:21 .S/ CC: ABELINO SAWYER PA-C [id number] [place] [address] Radiology Main Line: [phone] DIAGNOSTIC IMAGING REPORT Patient: YVONNE SOLORIO : 1985 Age: 33 Sex: F MR #: [id number] DOS: 10/24/18 0858 Ordering MD: ABELINO SAWYER PA-C Location: FTE Room/Bed: PROCEDURE: XR Wrist. CLINICAL INDICATION: pain TECHNIQUE: AP, lateral and oblique views of the left wrist were performed. COMPARISON: No prior studies are available for comparison. FINDINGS: There is no evidence of acute fracture. No evidence of dislocation or subluxation. The bones appear well mineralized. The joint spaces are well preserved. The soft tissues are normal. RPTAT: AA IMPRESSION: Unremarkable exam of the left wrist. .Ap Johnston MD, MD Date Time Electronically viewed and signed by .Ap Johnston MD, on 10/24/2018 09:21 .S/ CC: ABELINO SAWYER PA-C [id number] ER COURSE: The patient was given ibuprofen The medication was well tolerated and the patient reports improvement in symptoms. The patient was stable throughout ED course. I kept the patient and/or family informed of laboratory and diagnostic imaging results throughout the emergency room course. The patient was promptly evaluated and a treatment plan was devised based on H&P and other data. This plan was discussed with the patient who agreed and had no further questions or concerns prior to discharge. MEDICAL DECISION MAKING: This is a 33-year-old female presents ED with left upper extremity pain times 2 weeks. X-rays unremarkable. This likely muscle strain givEN HX. history and physical examination other data not consistent with emergent processes including but not limited to fracture, dislocation, tendon rupture, ischemia, neurovascular injury, compartment syndrome, septic joint, avascular necrosis, osteomyelitis, necrotizing fasciitis, septic joint, septic arthritis, or other emergent conditions. Patient's vitals are stable and can be managed outpatient with close follow-up. Advised patient to follow-up with primary care in the next 48 hours. Return to ED with any worsening symptoms. DISPOSITION PLAN: We discussed follow up with the patient's primary care doctor within 24 to 48 hours. Patient counseled regarding my diagnostic impression and care plan. Prior to discharge all questions answered. Pt agrees with treatment plan and understands strict return precautions. Precautionary instructions provided including instructions to return to the ER if not improving or for any worsening or changing symptoms or concerns. SPECIALIST FOLLOW UP RECOMMENDED: None Patient has been advised to follow up with primary care in 1-2 days. Disclaimer: Inadvertent spelling and grammatical errors are likely due to EHR/dictation software use and do not reflect on the overall quality of patient care. Also, please note that the electronic time recorded on this note does not necessarily reflect the actual time of the patient encounter. Blood Pressure Assessment: Patient's blood pressure was elevated (>120/80) but appears stable without evidence of hypertension emergency or urgency. The patient was counseled about the risks of hypertension and urged to pursue outpatient monitoring and therapy within a week with their primary care physician. Departure Diagnosis: Primary Impression: Pain of left arm Condition: Stable Patient Instructions: Muscle Strain, Extremity [facility]errals[facility] Usted se aparicio hecho un examen mdico de control que le indica que no est en joanna condicin que requiera tratamiento urgente en el Departamento de Emergencia. Un estudio ms profundo y el tratamiento de moya condicin pueden esperar sin ningn riesgo hasta que usted sea atendida/o en el consultorio de moya mdico o joanna clnica. Es responsabilidad suya arreglar joanna bala para el seguimiento del shane. MANEJO DE CONDICIONES NO URGENTES EN EL FUTURO 1) Si usted tiene un mdico de atencin primaria: Usted debera llamar a moya mdico de atencin primaria antes de venir al departamento de emergencia. Despus de las horas de consultorio, moya doctor o moya asociado/a est disponible por telfono. El mdico o enfermero de izzy en el servicio telefnico puede asesorarle por callie medio para atender el problema, o shane contrario se puede programar joanna bala. 2) Si usted no tiene un mdico de atencin primaria: Llame al mdico o clnica de referencia que aparece abajo karen las horas de consultorio para hacer joanna bala para que le vean. CLINICAS: [place] [address] [phone] [facility] [phone] [place] [address] [phone] [facility]. [place] [address] [phone] [facility] [place] [address] [phone] [place] [address] [phone] Additional Instructions: Paciente aconseja volver a Departamento de urgencias inmediatamente para sntomas nuevos o que empeoran . Paciente aconseja posteriores con el PCP en 1-2 cespedes . Paciente verbaliza la comprehensin y est de acuerdo con el tratamiento y el curso de accin. Si el paciente no tiene ninguna de atencin primaria pueden seguir con [facility] [address] [place] [address] o [facility] + [address] [address] ABELINO SAWYER PA-C Oct 24, 2018 10:22
== END 2018-10-24 09:54 | disposition home or self-care (01) ==
LOC: FTE 08:41
DX: M79.602 Pain in left arm (principal); J45.909 Unspecified asthma, uncomplicated
CPT/HCPCS: 73090; 73110; 73130; 81025; Z7502; Z7610

== ENCOUNTER 2019-01-02 15:15 | Emergency (ER) | payer MEDICAID ==
[~2019-01-02] VITALS: Ht 157.5 cm; Wt 89.1 kg
[~2019-01-02 15:15] MED LIST changes: +IBUP-1542 PO
[2019-01-02 16:10] VITALS: Ht 157.5 cm; Wt 89.1 kg
--- NOTE | 2019-01-02 18:01 | ERD ---
ER Documentation Chief Complaint Chief Complaint SOB WITH COUGH X 3 DAYS HPI 33-year-old female, with history of asthma, presents to the emergency department, complaining of cough and shortness of breath on exertion, associated with wheezing. The symptoms started 3 days ago. She denies fevers, no chills. She has been using her inhaler with mild improvement of the symptoms. ROS All systems reviewed and are negative except as per history of present illness. Medications Home Meds Active Scripts Ibuprofen* (Motrin*) 600 Mg Tab, 600 MG PO Q6, #30 TAB Prov:ABELINO SAWYER PA-C 10/24/18 Albuterol Sulfate* (Proair HFA*) 8.5 Gm Hfa.aer.ad, 2 PUFF INH Q4, #1 INHALER Prov:ACE MELARA PA-C 10/10/18 Prednisone* (Prednisone*) 20 Mg Tab, 60 MG PO DAILY for 4 Days, TAB Prov:ACE MELARA PA-C 10/10/18 Azithromycin* (Zithromax*) 250 Mg Tablet, 250 MG PO .ZPACK DIRECTED, #6 TAB TAKE 500 MG (2 TABS) THE FIRST DAY THEN 250 MG (1 TAB) DAYS 2-5 Prov:JOSE MARIA HUGHES MD 09/13/18 Prednisone* (Prednisone*) 20 Mg Tab, 60 MG PO DAILY for 4 Days, TAB Prov:JOSE MARIA HUGHES MD 09/13/18 Albuterol Sulfate* (Proair HFA*) 8.5 Gm Hfa.aer.ad, 2 PUFF INH Q4H PRN for WHEEZING AND SOB, #1 INHALER Prov:JOSE MARIA HUGHES MD 09/13/18 Albuterol Sulfate* (Proair HFA*) 8.5 Gm Hfa.aer.ad, 2 PUFF INH Q6H PRN for WHEEZING AND SOB, #1 INHALER Prov:LAKESHIA SPRINGER MD 08/07/18 Cetirizine Hcl* (Zyrtec*) 10 Mg Capsule, 10 MG PO DAILY, #30 TAB.CHEW Prov:LIBBY FLORES PA-C 03/27/18 Albuterol Sulfate* (Proair HFA*) 8.5 Gm Hfa.aer.ad, 2 PUFF INH Q4, #1 INHALER Prov:DONTAE GRANADOSLiliana CHU 09/24/17 Reported Medications Salmeterol Xinaf-Fluticasone* (Advair*) 1 Inh Inha, 1 PUFF INH BID, INH 03/10/14 Allergies Allergies: Coded Allergies: No Known Allergy (Verified , 10/10/18) PMhx/Soc History of Surgery: Yes (GALL STONES,C/S) Anesthesia Reaction: No Hx Neurological Disorder: No Hx Respiratory Disorders: Yes (asthma, bronchitis ) Hx Cardiac Disorders: No Hx Psychiatric Problems: No Hx Miscellaneous Medical Probl: No Hx Alcohol Use: No Hx Substance Use: No Hx Tobacco Use: No Physical Exam Vitals Vital Signs Date Temp Pulse Resp B/P (MAP) Pulse Ox O2 O2 Flow FiO2 Time Delivery Rate 01/02/19 98.7 99 16 125/80 96 16:10 (95) Physical Exam Const: No acute distress Head: Atraumatic Eyes: Normal Conjunctiva ENT: Normal External Ears, Nose and Mouth. Neck: Full range of motion. No meningismus. Resp: Clear to auscultation bilaterally Cardio: Regular rate and rhythm, no murmurs Abd: Soft, non tender, non distended. Normal bowel sounds Skin: No petechiae or rashes Back: No midline or flank tenderness Ext: No cyanosis, or edema Neur: Awake and alert Psych: Normal Mood and Affect Procedures/MDM At the time of discharge, vital signs stable, no respiratory distress. Differential diagnosis include but not limited to: Respiratory infection bacterial/viral/fungal. Asthma/COPD, pneumonitis, allergies, GERD. Less likely foreign body aspiration, cardiac related, aspiration pneumonia, malignancy. Physical examination and clinical presentation consistent most likely with acute asthma exacerbation with early superimposed bacterial infection. During the ED course the patient remained stable, received a nebulized treatment and steroids in the ED presenting overall improvement of the symptoms, no new complaints. Clinical impression discussed with the patient who agrees with management. The patient is stable to be treated outpatient and will be discharged home. Some side effects of prescribed medications (headache, rash, nausea, vomiting, diarrhea, drowsiness, habituation, bleeding, hypertension, interactions with other medications) were reviewed. The patient was instructed to follow up with the primary care provider in the next 48h. If symptoms persist, worsen or new symptoms develop, then patient should return to the ED immediately. Disclaimer: Inadvertent spelling and grammatical errors are likely due to EHR/dictation software use and do not reflect on the overall quality of patient care. Also, please note that the electronic time recorded on this note does not necessarily reflect the actual time of the patient encounter. JOSE MARIA HUGHES MD Jan 02, 2019 18:01
[2019-01-02] MEDS ORDERED: ALBUTEROL 0.083% (NEB) 2.5 MG/3 ML AMP HHN STA (18:02)
[2019-01-02] MEDS ORDERED: METHYLPREDNISOLONE 125 MG INJ IM ONE (18:30)
[2019-01-02] MEDS ORDERED: ALBU18HF INHALATION (19:04)
[2019-01-02] MEDS ORDERED: PRED20TA PO (19:04)
--- NOTE | 2019-01-02 19:07 | ERD ---
ER Documentation Chief Complaint Chief Complaint SOB WITH COUGH X 3 DAYS HPI 33-year-old female presents with a history of asthma and shortness of breath and wheezing for last 3 days. She is out of albuterol at home. She may have mild cough patient has fevers, chest pain, vomiting or abdominal pain. No syncope, h emoptysis, calf swelling. ROS All systems reviewed and are negative except as per history of present illness. Medications Home Meds Active Scripts Albuterol Sulfate* (Ventolin HFA*) 18 Gm Hfa.aer.ad, 2 PUFF INHALATION Q4H, #1 INHALER Prov:ALFA BAH MD 01/02/19 Prednisone* (Prednisone*) 20 Mg Tab, 60 MG PO DAILY for 5 Days, TAB 60 mg by mouth for 3 days then 40 mg by mouth for 3 days. Prov:ALFA BAH MD 01/02/19 Ibuprofen* (Motrin*) 600 Mg Tab, 600 MG PO Q6, #30 TAB Prov:ABELINO SAWYER PA-C 10/24/18 Albuterol Sulfate* (Proair HFA*) 8.5 Gm Hfa.aer.ad, 2 PUFF INH Q4, #1 INHALER Prov:ACE MELARA PA-C 10/10/18 Prednisone* (Prednisone*) 20 Mg Tab, 60 MG PO DAILY for 4 Days, TAB Prov:ACE MELARA PA-C 10/10/18 Azithromycin* (Zithromax*) 250 Mg Tablet, 250 MG PO .PaulPACK DIRECTED, #6 TAB TAKE 500 MG (2 TABS) THE FIRST DAY THEN 250 MG (1 TAB) DAYS 2-5 Prov:JOSE MARIA HUGHES MD 09/13/18 Prednisone* (Prednisone*) 20 Mg Tab, 60 MG PO DAILY for 4 Days, TAB Prov:JOSE MARIA HUGHES MD 09/13/18 Albuterol Sulfate* (Proair HFA*) 8.5 Gm Hfa.aer.ad, 2 PUFF INH Q4H PRN for WHEEZING AND SOB, #1 INHALER Prov:JOSE MARIA HUGHES MD 09/13/18 Albuterol Sulfate* (Proair HFA*) 8.5 Gm Hfa.aer.ad, 2 PUFF INH Q6H PRN for WHEEZING AND SOB, #1 INHALER Prov:LAKESHIA SPRINGER MD 08/07/18 Cetirizine Hcl* (Zyrtec*) 10 Mg Capsule, 10 MG PO DAILY, #30 TAB.CHEW Prov:LIBBY FLORES PA-C 03/27/18 Albuterol Sulfate* (Proair HFA*) 8.5 Gm Hfa.aer.ad, 2 PUFF INH Q4, #1 INHALER Prov:DONTAE GRANADOS PA-C 09/24/17 Reported Medications Salmeterol Xinaf-Fluticasone* (Advair*) 1 Inh Inha, 1 PUFF INH BID, INH 03/10/14 Allergies Allergies: Coded Allergies: No Known Allergy (Verified , 10/10/18) PMhx/Soc History of Surgery: Yes (GALL STONES,C/S) Anesthesia Reaction: No Hx Neurological Disorder: No Hx Respiratory Disorders: Yes (asthma, bronchitis ) Hx Cardiac Disorders: No Hx Psychiatric Problems: No Hx Miscellaneous Medical Probl: No Hx Alcohol Use: No Hx Substance Use: No Hx Tobacco Use: No FmHx Family History: No diabetes, No coronary disease, No other Physical Exam Vitals Vital Signs Date Temp Pulse Resp B/P (MAP) Pulse Ox O2 O2 Flow FiO2 Time Delivery Rate 01/02/19 99 16 96 21 18:25 01/02/19 98.7 99 16 125/80 96 16:10 (95) Physical Exam Const: No acute distress Head: Atraumatic Eyes: Normal Conjunctiva ENT: Normal External Ears, Nose and Mouth. TMs and oropharynx normal. Neck: Full range of motion. No meningismus. Resp: Clear to auscultation bilaterally diffuse wheezing without rales, retractions. Cardio: Regular rate and rhythm, no murmurs Abd: Soft, non tender, non distended. Normal bowel sounds Skin: No petechiae or rashes Back: No midline or flank tenderness Ext: No cyanosis, or edema Neur: Awake and alert Psych: Normal Mood and Affect Results 24 hrs Current Medications Medications Dose Sig/Love Start Time Status Last (Trade) Ordered Route PRN Stop Time Admin Dose Reason Admin 125 mg ONCE ONCE 01/02/19 DC 01/02/19 Methylprednis IM 18:30 18:07 olone Sodium 01/02/19 18:31 Succinate (Solu-Medrol) Albuterol 5 mg ONCE STAT 01/02/19 DC 01/02/19 (Proventil HHN 18:02 18:24 0.083% (Neb)) 01/02/19 18:03 Procedures/MDM Patient presents with signs and symptoms of asthma exacerbation without signs of hypoxemia, respiratory distress. She is PERC negative. She has no signs of pneumonia on exam. She has no complaints of chest pain or abdominal pain. Patient was given Solu-Medrol 125 mg IM, albuterol treatment and had clear lungs and felt much better after observation treatment. Will be treated with prednisone, albuterol, primary care follow-up and return precautions. The patient was stable with no new complaints during the ER course. Clinically, there is no current evidence to suggest meningitis, sepsis, acute abdomen, pneumonia, stroke, acute coronary syndrome, pulmonary embolism, aortic dissection or any other emergent condition appearing to require further evaluati on or hospitalization. Patient counseled regarding my diagnostic impression and care plan. Prior to discharge all questions answered. Pt agrees with treatment plan and understands strict return precautions. Pt is instructed to follow up with primary care provider within 24-48 hours. Precautionary instructions provided including instructions to return to the ER if not improving or for any worsening or changing symptoms or concerns. Departure Diagnosis: Primary Impression: Asthma exacerbation Asthma severity: unspecified severity Asthma persistence: unspecified Qualified Codes: J45.901 - Unspecified asthma with (acute) exacerbation Condition: Stable Patient Instructions: Asthma, Acute (Adult) Referrals: NO PRIMARY,CARE PHYSICIAN (PCP) Additional Instructions: Cheque otro vez con moya doctor primario en el proximo yeager or regresa para mas o nueva simptomas. ALFA BAH MD Jan 02, 2019 19:07
== END 2019-01-02 19:23 | disposition home or self-care (01) ==
LOC: FTE 15:15
DX: J45.901 Unspecified asthma with (acute) exacerbation (principal)
CPT/HCPCS: 94664; 96372; J2930; Z7502; Z7610

== ENCOUNTER 2019-01-24 09:56 | Emergency (ER) | payer MEDICAID ==
[~2019-01-24] VITALS: Ht 154.9 cm; Wt 90.8 kg
[~2019-01-24 09:56] MED LIST changes: +ALBU18HF INHALATION
[2019-01-24 10:00] VITALS: BP 112/65; PULSE 71; RESP 19; Ht 154.9 cm; Wt 90.8 kg
[2019-01-24] MEDS ORDERED: ALBUTEROL 0.083% (NEB) 2.5 MG/3 ML AMP HHN STA (10:23)
[2019-01-24] MEDS ORDERED: IPRATROPIUM (NEB) 0.5 MG/2.5 ML AMP HHN ONE (10:30)
[2019-01-24] MEDS ORDERED: DEXAMETHASONE 10 MG/ML 1 ML INJ IM ONE (10:30)
[2019-01-24] MEDS ORDERED: NPH10OT RIGHT EAR (11:43)
[2019-01-24] MEDS ORDERED: PRED20TA PO (11:43)
[2019-01-24] MEDS ORDERED: ALBU8.5H8 INH (11:43)
[2019-01-24] MEDS ORDERED: PSEU-79 PO (11:48)
--- NOTE | 2019-01-24 11:48 | ERD ---
ER Documentation Chief Complaint Chief Complaint COUGH HPI 33-year-old female presenting with cough and shortness of breath. Mild sore throat. Mild runny nose. No fevers. Patient has a history of asthma and has been using her inhaler but has continued wheezing. No sick contacts. Denies medical problems. NKDA. Surgical history denies. Social history denies ROS All systems reviewed and are negative except as per history of present illness. Medications Home Meds Active Scripts Pseudoephedrine Hcl* (Suphedrin*) 30 Mg Tablet, 30 MG PO Q6 PRN for CONGESTION, #30 TAB Prov:WILLIAMS DUNHAM PA-C 01/24/19 Neomycin/Polymyxin/Hydrocort* (Cortisporin* Otic) 10 Ml Susp, 4 DROP RIGHT EAR QID for 7 Days, EA Prov:WILLIAMS DUNHAM PA-C 01/24/19 Albuterol Sulfate* (Proair HFA*) 8.5 Gm Hfa.aer.ad, 2 PUFF INH Q4, #1 INHALER Prov:WILLIAMS DUNHAM PA-C 01/24/19 Prednisone* (Prednisone*) 20 Mg Tab, 40 MG PO DAILY for 4 Days, TAB Prov:WILLIAMS DUNHAM PA-C 01/24/19 Albuterol Sulfate* (Ventolin HFA*) 18 Gm Hfa.aer.ad, 2 PUFF INHALATION Q4H, #1 INHALER Prov:ALFA BAH MD 01/02/19 Prednisone* (Prednisone*) 20 Mg Tab, 60 MG PO DAILY for 5 Days, TAB 60 mg by mouth for 3 days then 40 mg by mouth for 3 days. Prov:ALFA BAH MD 01/02/19 Ibuprofen* (Motrin*) 600 Mg Tab, 600 MG PO Q6, #30 TAB Prov:ABELINO SAWYER PA-C 10/24/18 Albuterol Sulfate* (Proair HFA*) 8.5 Gm Hfa.aer.ad, 2 PUFF INH Q4, #1 INHALER Prov:ACE MELARA PA-C 10/10/18 Prednisone* (Prednisone*) 20 Mg Tab, 60 MG PO DAILY for 4 Days, TAB Prov:ACE MELARA PA-C 10/10/18 Azithromycin* (Zithromax*) 250 Mg Tablet, 250 MG PO .ZPACK DIRECTED, #6 TAB TAKE 500 MG (2 TABS) THE FIRST DAY THEN 250 MG (1 TAB) DAYS 2-5 Prov:JOSE MARIA HUGHES MD 09/13/18 Prednisone* (Prednisone*) 20 Mg Tab, 60 MG PO DAILY for 4 Days, TAB Prov:JOSE MARIA HUGHES MD 09/13/18 Albuterol Sulfate* (Proair HFA*) 8.5 Gm Hfa.aer.ad, 2 PUFF INH Q4H PRN for WHEEZING AND SOB, #1 INHALER Prov:JOSE MARIA HUGHES MD 09/13/18 Albuterol Sulfate* (Proair HFA*) 8.5 Gm Hfa.aer.ad, 2 PUFF INH Q6H PRN for WHEEZING AND SOB, #1 INHALER Prov:LAKESHIA SPRINGER MD 08/07/18 Cetirizine Hcl* (Zyrtec*) 10 Mg Capsule, 10 MG PO DAILY, #30 TAB.CHEW Prov:LIBBY FLORES PA-C 03/27/18 Albuterol Sulfate* (Proair HFA*) 8.5 Gm Hfa.aer.ad, 2 PUFF INH Q4, #1 INHALER Prov:DONTAE GRANADOS PA-C 09/24/17 Reported Medications Salmeterol Xinaf-Fluticasone* (Advair*) 1 Inh Inha, 1 PUFF INH BID, INH 03/10/14 Allergies Allergies: Coded Allergies: No Known Allergy (Verified , 10/10/18) PMhx/Soc History of Surgery: Yes (GALL STONES,C/S) Anesthesia Reaction: No Hx Neurological Disorder: No Hx Respiratory Disorders: Yes (asthma, bronchitis ) Hx Cardiac Disorders: No Hx Psychiatric Problems: No Hx Miscellaneous Medical Probl: No Hx Alcohol Use: No Hx Substance Use: No Hx Tobacco Use: No FmHx Family History: No diabetes, No coronary disease, No other Physical Exam Vitals Vital Signs Date Temp Pulse Resp B/P (MAP) Pulse Ox O2 O2 Flow FiO2 Time Delivery Rate 01/24/19 75 20 96 21 10:37 01/24/19 98.5 71 19 112/65 97 10:00 (81) Physical Exam GENERAL: The patient is well-appearing, well-nourished, in no acute distress HEENT: Atraumatic. Conjunctivae are pink. Pupils equal, round, and reactive to light. There is no scleral icterus. Tympanic membranes clear bilaterally. Foreign body in the right ear canal. NECK: C-spine is soft and supple. There is no meningismus. There is no cervical lymphadenopathy. CHEST: Diffuse wheezing heard on auscultation. No focal rhonchi. No retractions. HEART: Regular rate and rhythm. No murmurs, clicks, rubs or gallops. Results 24 hrs Current Medications Medications Dose Sig/Love Start Time Status Last (Trade) Ordered Route PRN Stop Time Admin Dose Reason Admin Albuterol 5 mg ONCE STAT 01/24/19 DC 01/24/19 (Proventil HHN 10:23 10:31 0.083% (Neb)) 01/24/19 10:25 Ipratropium 0.5 mg ONCE ONCE 01/24/19 DC 01/24/19 [place] HHN 10:30 10:31 (Atrovent 01/24/19 10:31 0.02% (Neb)) 10 mg ONCE ONCE 01/24/19 DC 01/24/19 Dexamethasone IM 10:30 10:39 (Decadron) 01/24/19 10:31 Procedures/MDM ER course: Foreign body removed without complication from the right external ear canal. Albuterol and Atrovent breathing treatment given ED. Decadron given in the ED. Upon reevaluation patient symptoms improved and patient felt less short of breath. MDM: 33 yr old female complaining of shortness of breath. Patient received breathing treatment in the ED with improved symptoms. I have low suspicion for respiratory distress or hypoxia. I have low suspicion for pneumonia. Foreign body was also removed from the ear without complication. I will treat with otic drops prophylactic against possible excoriations within the external ear canal. Patient is discharged with strict ER precautions and told to follow-up with primary care within 1-2 days for close evaluation. All questions answered at discharge Departure Diagnosis: Primary Impression: Cough Condition: Stable Patient Instructions: Cough, Chronic, Uncertain Cause, (Adult) Referrals: COMMUNITY CLINICS YOU HAVE RECEIVED A MEDICAL SCREENING EXAM AND THE RESULTS INDICATE THAT YOU DO NOT HAVE A CONDITION THAT REQUIRES URGENT TREATMENT IN THE EMERGENCY DEPARTMENT. FURTHER EVALUATION AND TREATMENT OF YOUR CONDITION CAN WAIT UNTIL YOU ARE SEEN IN YOUR DOCTORS OFFICE WITHIN THE NEXT 1-2 DAYS. IT IS YOUR RESPONSIBILITY TO MAKE AN APPOINTMENT FOR FOLOW-UP CARE. IF YOU HAVE A PRIMARY DOCTOR --you should call your primary doctor and schedule an appointment IF YOU DO NOT HAVE A PRIMARY DOCTOR YOU CAN CALL OUR PHYSICIAN REFERRAL HOTLINE AT IF YOU CAN NOT AFFORD TO SEE A PHYSICIAN YOU CAN CHOSE FROM THE FOLLOWING [facility] [address] [facility] [address] [facility] [facility] [address] [facility] [address] [facility] [facility] [address] [facility]. [facility] [address] Additional Instructions: FOLLOW UP WITH YOUR PRIMARY CARE PHYSICIAN TOMORROW.Return to this facility if you are not improving as expected. WILLIAMS DUNHAM PA-C Jan 24, 2019 11:48
== END 2019-01-24 11:50 | disposition home or self-care (01) ==
LOC: FTE 09:56
DX: T16.1XXA Foreign body in right ear, initial encounter (principal); J45.901 Unspecified asthma with (acute) exacerbation; X58.XXXA Exposure to other specified factors, initial encounter; Y92.9 Unspecified place or not applicable
CPT/HCPCS: 69200; 94664; 96372; J1100; Z7502; Z7610

== ENCOUNTER 2019-03-07 16:55 | Emergency (ER) | payer MEDICAID ==
[~2019-03-07] VITALS: Ht 154.9 cm; Wt 90.9 kg
[~2019-03-07 16:55] MED LIST changes: +NPH10OT RIGHT EAR; +PSEU-79 PO
[2019-03-07 17:11] VITALS: Ht 154.9 cm; Wt 90.9 kg
--- NOTE | 2019-03-07 17:30 | EN ---
Date/Time of Note Date/Time of Note DATE: 03/07/19 TIME: 17:27 ER Progress Note Quick RME note: Medical screening exam was initiated and lab/imaging studies were ordered. Patient will be seen in ED 2 by another provider. HPI: Patient is a 33-year-old female with past medical history of asthma presents the ER for concerns of cough, fevers and wheezing x2 days. Patient states she tried to use her inhaler at home with minimal alleviation of symptoms. Patient reports T-max of 100.5 Fahrenheit. Physical exam: GENERAL: Well-developed, well-nourished female. Appears in no acute distress. HEAD: Normocephalic, atraumatic. EYES: Pupils are equally reactive bilaterally. EOMs grossly intact. No conjunctival erythema. NECK: Supple. No meningismus. Normal range of motion of the neck. CHEST WALL: Tender to palpation of the anterior chest wall. Pain is reproducible. LUNG: Bilateral expiratory wheezing noted. No abdominal retractions, nasal flaring, no tripoding. HEART: Tachycardic. No murmurs, rubs or gallops. EXTREMITIES: Equal pulses bilaterally. No peripheral clubbing, cyanosis or edema. No unilateral leg swelling. NEUROLOGIC: Alert and oriented. Moving all four extremities without any difficulty. Normal speech. Steady gait. SKIN: Normal color. Warm and dry. No rashes or lesions. CARE PLAN: Patient will require breathing treatment and steroids. Patient will be seen by an ED 2 provider. ACE MELARA PA-C March 07, 2019 17:30
[2019-03-07] MEDS ORDERED: ALBUTEROL 0.5% (NEB) 2.5 MG/0.5 ML AMP INH STA (18:29)
[2019-03-07] MEDS ORDERED: METHYLPREDNISOLONE 125 MG INJ IV STA (18:29)
[2019-03-07] MEDS ORDERED: KETOROLAC 15 MG INJ IV STA (18:37)
[2019-03-07] MEDS ORDERED: SOD CHLORIDE 0.9% 1,000 ML IV ONE (19:00)
[2019-03-07] MEDS ORDERED: LEVALBUTEROL (NEB) 1.25 MG/0.5 ML AMP INH STA (20:29)
[2019-03-07] MEDS ORDERED: IPRATROPIUM (NEB) 0.5 MG/2.5 ML AMP INH STA ×2 (20:29→21:31)
[2019-03-08] MEDS ORDERED: ALBU8.5H8 INH (00:21)
[2019-03-08] MEDS ORDERED: PRED20TA PO (00:21)
[2019-03-08] MEDS ORDERED: ACET325T33 PO (00:21)
[2019-03-08] MEDS ORDERED: AZIT250T PO (00:21)
--- NOTE | 2019-03-08 00:27 | ERD ---
ER Documentation Chief Complaint Chief Complaint c/o anterior CWP, exacerbated by coughing x2 days. on and off fever HPI This is a 33-year-old female patient presents emergency room with shortness of breath, wheezing, coughing x2 days. States she has been out of her albuterol inhaler. Patient speaks in complete sentences, no audible wheezing, no tripoding, NAD. Patient has extensive history at this ER of asthma exacerbations. Patient denies smoking. Medical history significant for asthma and bronchitis. ROS All systems reviewed and are negative except as per history of present illness. Medications Home Meds Active Scripts Prednisone* (Prednisone*) 20 Mg Tab, 40 MG PO DAILY for asthma for 4 Days, TAB Prov:SALLIE JEROME NP 03/08/19 Acetaminophen* (Tylenol*) 325 Mg Tablet, 2 TAB PO Q8 PRN for PAIN AND OR ELEVATED TEMP, #20 TAB Prov:SALLIE JEROME NP 03/08/19 Albuterol Sulfate* (Proair HFA*) 8.5 Gm Hfa.aer.ad, 2 PUFF INH Q4, #1 INHALER Prov:SALLIE JEROME NP 03/08/19 Azithromycin* (Zithromax*) 250 Mg Tablet, 250 MG PO DAILY for bronchitis for 4 Days, TAB Prov:SALLIE JEROME NP 03/08/19 Pseudoephedrine Hcl* (Suphedrin*) 30 Mg Tablet, 30 MG PO Q6 PRN for CONGESTION, #30 TAB Prov:WILLIAMS DUNHAM PA-C 01/24/19 Neomycin/Polymyxin/Hydrocort* (Cortisporin* Otic) 10 Ml Susp, 4 DROP RIGHT EAR QID for 7 Days, EA Prov:WILLIAMS DUNHAM PA-C 01/24/19 Albuterol Sulfate* (Proair HFA*) 8.5 Gm Hfa.aer.ad, 2 PUFF INH Q4, #1 INHALER Prov:WILLIAMS DUNHAM PA-C 01/24/19 Prednisone* (Prednisone*) 20 Mg Tab, 40 MG PO DAILY for 4 Days, TAB Prov:WILLIAMS DUNHAM PA-C 01/24/19 Albuterol Sulfate* (Ventolin HFA*) 18 Gm Hfa.aer.ad, 2 PUFF INHALATION Q4H, #1 INHALER Prov:ALFA BAH MD 01/02/19 Prednisone* (Prednisone*) 20 Mg Tab, 60 MG PO DAILY for 5 Days, TAB 60 mg by mouth for 3 days then 40 mg by mouth for 3 days. Prov:ALFA BAH MD 01/02/19 Ibuprofen* (Motrin*) 600 Mg Tab, 600 MG PO Q6, #30 TAB Prov:ABELINO SAWYER PA-C 10/24/18 Albuterol Sulfate* (Proair HFA*) 8.5 Gm Hfa.aer.ad, 2 PUFF INH Q4, #1 INHALER Prov:ACE MELARA PA-C 10/10/18 Prednisone* (Prednisone*) 20 Mg Tab, 60 MG PO DAILY for 4 Days, TAB Prov:ACE MELARA PA-C 10/10/18 Azithromycin* (Zithromax*) 250 Mg Tablet, 250 MG PO .ZPACK DIRECTED, #6 TAB TAKE 500 MG (2 TABS) THE FIRST DAY THEN 250 MG (1 TAB) DAYS 2-5 Prov:JOSE MARIA HUGHES MD 09/13/18 Prednisone* (Prednisone*) 20 Mg Tab, 60 MG PO DAILY for 4 Days, TAB Prov:JOSE MARIA HUGHES MD 09/13/18 Albuterol Sulfate* (Proair HFA*) 8.5 Gm Hfa.aer.ad, 2 PUFF INH Q4H PRN for WHEEZING AND SOB, #1 INHALER Prov:JOSE MARIA HUGHES MD 09/13/18 Albuterol Sulfate* (Proair HFA*) 8.5 Gm Hfa.aer.ad, 2 PUFF INH Q6H PRN for WHEEZING AND SOB, #1 INHALER Prov:LAKESHIA SPRINGER MD 08/07/18 Cetirizine Hcl* (Zyrtec*) 10 Mg Capsule, 10 MG PO DAILY, #30 TAB.CHEW Prov:LIBBY FLORES PA-C 03/27/18 Albuterol Sulfate* (Proair HFA*) 8.5 Gm Hfa.aer.ad, 2 PUFF INH Q4, #1 INHALER Prov:DONTAE GRANADOS PA-C 09/24/17 Reported Medications Salmeterol Xinaf-Fluticasone* (Advair*) 1 Inh Inha, 1 PUFF INH BID, INH 03/10/14 Allergies Allergies: Coded Allergies: No Known Allergy (Verified , 10/10/18) PMhx/Soc History of Surgery: Yes (GALL STONES,C/S) Anesthesia Reaction: No Hx Neurological Disorder: No Hx Respiratory Disorders: Yes (asthma, bronchitis ) Hx Cardiac Disorders: No Hx Psychiatric Problems: No Hx Miscellaneous Medical Probl: No Hx Alcohol Use: No Hx Substance Use: No Hx Tobacco Use: No Smoking Status: Never smoker Physical Exam Vitals Vital Signs Date Temp Pulse Resp B/P (MAP) Pulse Ox O2 O2 Flow FiO2 Time Delivery Rate 03/08/19 98.4 115 17 115/60 95 Room Air 00:56 (78) 03/07/19 107 20 96 21 21:39 03/07/19 116 20 94 21 18:50 03/07/19 100.1 124 20 114/55 94 17:11 (74) Physical Exam Const: No acute distress Head: Atraumatic Eyes: Normal Conjunctiva, PERRL ENT: Normal External Ears, Nose and Mouth. Pharynx pink, moist, no lesions, no exudate. Neck: Full range of motion. No meningismus. Lymphadenopathy. Resp: Diffuse expiratory wheezing, no retractions, no stridor Cardio: Regular cardiac rate and rhythm, no murmurs Abd: Soft, non tender, non distended. Normal bowel sounds Skin: No petechiae or rashes, color consistent with ethnicity Back: No midline or flank tenderness Ext: No cyanosis, or edema Neur: Awake and alert Psych: Normal Mood and Affect Result Diagram: 03/07/195 03/07/191844 Results 24 hrs Laboratory Tests Test 03/07/19 18:45 03/07/19 19:24 White Blood Count 11.0 10^3/ul Red Blood Count 4.68 10^6/ul Hemoglobin 14.2 g/dl Hematocrit 42.6 % Mean Corpuscular Volume 91.0 fl Mean Corpuscular Hemoglobin 30.3 pg Mean Corpuscular Hemoglobin Concent 33.3 g/dl Red Cell Distribution Width 12.4 % Platelet Count 353 10^3/UL Mean Platelet Volume 9.4 fl Immature Granulocytes % 0.200 % Neutrophils % 74.4 % Lymphocytes % 13.0 % Monocytes % 8.0 % Eosinophils % 4.1 % Basophils % 0.3 % Nucleated Red Blood Cells % 0.0 /100WBC Immature Granulocytes # 0.020 10^3/ul Neutrophils # 8.2 10^3/ul Lymphocytes # 1.4 10^3/ul Monocytes # 0.9 10^3/ul Eosinophils # 0.5 10^3/ul Basophils # 0.0 10^3/ul Nucleated Red Blood Cells # 0.0 10^3/ul Urine Color YELLOW Urine Clarity SLIGHTLY CLOUDY Urine pH 6.0 Urine Specific Zortman 1.025 Urine Ketones NEGATIVE mg/dL Urine Nitrite NEGATIVE mg/dL Urine Bilirubin NEGATIVE mg/dL Urine Urobilinogen 1+ mg/dL Urine Leukocyte Esterase NEGATIVE Dio/ul Urine Microscopic RBC 21 /HPF Urine Microscopic WBC 1 /HPF Urine Squamous Epithelial Cells FEW /HPF Urine Bacteria FEW /HPF Urine Mucus FEW /HPF Urine Hemoglobin 1+ mg/dL Urine Glucose NEGATIVE mg/dL Urine Total Protein NEGATIVE mg/dl Sodium Level 141 mmol/L Potassium Level 3.9 mmol/L Chloride Level 105 mmol/L Carbon Dioxide Level 29 mmol/L Anion Gap 7 Blood Urea Nitrogen 12 mg/dl Creatinine 0.62 mg/dl Est Glomerular Filtrat Rate mL/min > 60 mL/min Glucose Level 113 mg/dl Calcium Level 8.8 mg/dl POC Beta HCG, Qualitative NEGATIVE Current Medications Medications Dose Sig/Love Start Time Status Last (Trade) Ordered Route PRN Stop Time Admin Dose Reason Admin Albuterol 5 mg ONCE STAT 03/07/19 DC 03/07/19 (Proventil INH 18:29 18:49 0.5% (Neb)) 03/07/19 18:33 125 mg ONCE STAT 03/07/19 DC 03/07/19 Methylprednis IV 18:29 18:54 olone Sodium 03/07/19 18:33 Succinate (Solu-Medrol) Ketorolac 15 mg ONCE STAT 03/07/19 DC 03/07/19 Tromethamine IV 18:37 19:33 (Toradol) 03/07/19 18:38 Sodium 1,000 ml @ Q1H ONCE 03/07/19 DC 03/07/19 Chloride 1,000 mls/hr IV 19:00 18:54 03/07/19 19:59 5 mg ONCE STAT 03/07/19 DC 03/07/19 Levalbuterol INH 20:29 21:39 (Xopenex 03/07/19 20:40 Neb) Ipratropium 2 mg ONCE STAT 03/07/19 DC [place] INH 20:29 (Atrovent 03/07/19 21:32 0.02% (Neb)) Ipratropium 1 mg ONCE STAT 03/07/19 DC 03/07/19 [place] INH 21:31 21:39 (Atrovent 03/07/19 21:33 0.02% (Neb)) 500 mg ONCE ONCE 03/08/19 DC 03/08/19 Azithromycin PO 00:30 00:44 (Zithromax) 03/08/19 00:31 Procedures/MDM Is a 33-year-old female patient presents emergency room with complaint of cough and wheezing. ED COURSE: The patient was stable throughout ED course. DIAGNOSTIC IMAGING: Read by radiologist. IMPRESSION: No evidence for active cardiopulmonary disease. PROCEDURES: Continuous nebulized breathing treatment MEDICATIONS GIVEN: Albuterol, Atrovent, normal saline, Zithromax, Patient tolerated medication well with no adverse reactions. Patient reported improvement in pain. MDM: The bronchitis with asthma exacerbation was managed in the usual manner with i mprovement in oxygenation. The patient clinically looks well, has near normal work of breathing, normal level of alertness that is age appropriate, and normal abdominal exam. There are none of the following: meningeal signs, worrisome rash, evidence of serious ENT infection, respiratory distress, or evidence of serious bacterial infection by history and exam at this time. Patient has been sent home with prescriptions for antibiotics, prednisone, albuterol. Strict instructions on red flags and signs and symptoms of worsening of condition and when to return to emergency room. Patient verbalizes plan to follow-up with community physician. DISPOSITION: The patient has been discharge home to follow-up with community physician. Departure Diagnosis: Primary Impression: Acute bacterial bronchitis Condition: Stable Patient Instructions: Bronchitis With Wheezing (Adult) Referrals: COMMUNITY CLINICS YOU HAVE RECEIVED A MEDICAL SCREENING EXAM AND THE RESULTS INDICATE THAT YOU DO NOT HAVE A CONDITION THAT REQUIRES URGENT TREATMENT IN THE EMERGENCY DEPARTMENT. FURTHER EVALUATION AND TREATMENT OF YOUR CONDITION CAN WAIT UNTIL YOU ARE SEEN IN YOUR DOCTORS OFFICE WITHIN THE NEXT 1-2 DAYS. IT IS YOUR RESPONSIBILITY TO MAKE AN APPOINTMENT FOR FOLOW-UP CARE. IF YOU HAVE A PRIMARY DOCTOR --you should call your primary doctor and schedule an appointment IF YOU DO NOT HAVE A PRIMARY DOCTOR YOU CAN CALL OUR PHYSICIAN REFERRAL HOTLINE AT IF YOU CAN NOT AFFORD TO SEE A PHYSICIAN YOU CAN CHOSE FROM THE FOLLOWING [facility] [address] [facility] [address] [facility] [address] [facility] [address] [facility] [address] [facility]. [facility] [address] Additional Instructions: Thank you very much for allowing us to participate in your care. Your health and safety is our top priority at [facility]. Call your primary care doctor TOMORROW for an appointment during the next 2-4 days and bring all the information and medications prescribed. Have prescriptions filled and follow precisely the directions on the label. If the symptoms get worse and your provider is unavailable, return to the Emergency Department immediately. COMPLETE ENTIRE COURSE OF ANTIBIOTICS INCREASE HYDRATION TO 1-2 L/DAY USE ACETAMINOPHEN NEEDED FOR FEVER OR PAIN USE ALBUTEROL INHALER 2 PUFFS EVERY 4-6 HOURS NEEDED FOR WHEEZING OR SHORTNESS OF BREATH YOUR ASTHMA NEEDS TO BE MANAGED CLOSELY. YOU NEED TO ESTABLISH CARE WITH A PRIMARY CARE DOCTOR AND MAY NEED REFERRAL TO [facility] FOR FURTHER EVALUTION AND TREATMENT. SALLIE JEROME NP March 08, 2019 00:27
[2019-03-08] MEDS ORDERED: AZITHROMYCIN 500 MG TAB PO ONE (00:30)
[2019-03-08 00:56] VITALS: BP 115/60; PULSE 115; RESP 17
== END 2019-03-08 00:56 | disposition home or self-care (01) ==
LOC: FTE 16:55
DX: J20.9 Acute bronchitis, unspecified (principal)
CPT/HCPCS: 71045; 80048; 81001; 81025; 85025; 94644; 94664; J1885; J2930; J7030; Z7610; 36415; 96374; 96375

== ENCOUNTER 2019-03-15 23:18 | Emergency (ER) | payer MEDICAID, OTHER ==
[~2019-03-15] VITALS: Ht 157.5 cm; Wt 91.6 kg
[~2019-03-15 23:18] MED LIST changes: +ACET325T33 PO
[2019-03-15 23:23] VITALS: Ht 157.5 cm; Wt 91.6 kg
[2019-03-16] MEDS ORDERED: morphine 4 MG/ML VIAL IV STA (01:09)
[2019-03-16] MEDS ORDERED: ONDANSETRON 4 MG INJ IV STA (01:09)
--- NOTE | 2019-03-16 01:09 | ERD ---
ER Documentation Chief Complaint Chief Complaint RUQ pain that radiates to back with n/v x 4 days HPI This is a 33-year-old female presents here in emerge department with complaints of right upper abdominal pain that started 4 days ago and got worse today. LMP: 12/26/2018. A0. Denies headache, head injury, loss of consciousness, dizziness, neck pain, neck stiffness, throat pain, difficulty swallowing, difficulty breathing lying flat, shoulder pain, chest pain, back pain, nausea, vomiting, constipation, diarrhea, urinary symptoms, or possibility being , loss of bowel and bladder control, trauma, injury, falls, difficulty walking due to pain, numbness or tingling sensation, calf pain, recent travel, recent major surgery in the last 3 weeks, calf pain, recent long travel, recent exposure to any illness, recent antibiotic use in the last 3 months, fever, chills, seizures. Past medical history: History of gallstones. Surgical history: Social: Denies smoking, use of alcoholic beverages, use of illegal drugs. ROS All systems reviewed and are negative except as per history of present illness. Medications Home Meds Active Scripts Tramadol HCl (Tramadol HCl) 50 Mg Tablet, 50 MG PO Q4 PRN for SEVERE PAIN LEVEL 7-10, #5 TAB Prov:MIRIAN LOZANO 03/16/19 Dicyclomine HCl (Dicyclomine HCl) 10 Mg Capsule, 10 MG PO TID PRN for ABDOMINAL CRAMPING, #20 CAP Prov:PASILAMIRIAN ESCOBAR F 03/16/19 Omeprazole* (Omeprazole*) 40 Mg Capsule.dr, 40 MG PO DAILY, #30 CAP Prov:MIRIAN LOZANO 03/16/19 Ondansetron Hcl* (Zofran*) 4 Mg Tablet, 4 MG PO Q8H PRN for NAUSEA AND/OR VOMITI NG, #30 TAB Prov:MIRIAN LOZANO 03/16/19 Naproxen* (Naprosyn*) 500 Mg Tablet, 500 MG PO BID PRN for PAIN AND/OR INFLAMMATION, #30 TAB Prov:MIRIAN LOZANO F 03/16/19 Prednisone* (Prednisone*) 20 Mg Tab, 40 MG PO DAILY for asthma for 4 Days, TAB Prov:SALLIE JEROME ELECTRONIC ENGINEERING DRAFTSPERSON 03/08/19 Acetaminophen* (Tylenol*) 325 Mg Tablet, 2 TAB PO Q8 PRN for PAIN AND OR ELEVATED TEMP, #20 TAB Prov:SALLIE JEROME NP 03/08/19 Albuterol Sulfate* (Proair HFA*) 8.5 Gm Hfa.aer.ad, 2 PUFF INH Q4, #1 INHALER Prov:JEROMESALLIE NP 03/08/19 Azithromycin* (Zithromax*) 250 Mg Tablet, 250 MG PO DAILY for bronchitis for 4 Days, TAB Prov:JEROMESALLIE NP 03/08/19 Pseudoephedrine Hcl* (Suphedrin*) 30 Mg Tablet, 30 MG PO Q6 PRN for CONGESTION, #30 TAB Prov:WILLIAMS DUNHAM PA-C 01/24/19 Neomycin/Polymyxin/Hydrocort* (Cortisporin* Otic) 10 Ml Susp, 4 DROP RIGHT EAR QID for 7 Days, EA Prov:WILLIAMS DUNHAM PA-C 01/24/19 Albuterol Sulfate* (Proair HFA*) 8.5 Gm Hfa.aer.ad, 2 PUFF INH Q4, #1 INHALER Prov:WILLIAMS DUNHAM PA-C 01/24/19 Prednisone* (Prednisone*) 20 Mg Tab, 40 MG PO DAILY for 4 Days, TAB Prov:WILLIAMS DUNHAM PA-C 01/24/19 Albuterol Sulfate* (Ventolin HFA*) 18 Gm Hfa.aer.ad, 2 PUFF INHALATION Q4H, #1 INHALER Prov:ALFA BAH MD 01/02/19 Prednisone* (Prednisone*) 20 Mg Tab, 60 MG PO DAILY for 5 Days, TAB 60 mg by mouth for 3 days then 40 mg by mouth for 3 days. Prov:ALFA BAH MD 01/02/19 Ibuprofen* (Motrin*) 600 Mg Tab, 600 MG PO Q6, #30 TAB Prov:ABELINO SAWYER PA-C 10/24/18 Albuterol Sulfate* (Proair HFA*) 8.5 Gm Hfa.aer.ad, 2 PUFF INH Q4, #1 INHALER Prov:ACE MELARA PA-C 10/10/18 Prednisone* (Prednisone*) 20 Mg Tab, 60 MG PO DAILY for 4 Days, TAB Prov:ACE MELARA PA-C 10/10/18 Azithromycin* (Zithromax*) 250 Mg Tablet, 250 MG PO .ZPACK DIRECTED, #6 TAB TAKE 500 MG (2 TABS) THE FIRST DAY THEN 250 MG (1 TAB) DAYS 2-5 Prov:JOSE MARIA HUGHES MD 09/13/18 Prednisone* (Prednisone*) 20 Mg Tab, 60 MG PO DAILY for 4 Days, TAB Prov:JOSE MARIA HUGHES MD 09/13/18 Albuterol Sulfate* (Proair HFA*) 8.5 Gm Hfa.aer.ad, 2 PUFF INH Q4H PRN for WHEEZING AND SOB, #1 INHALER Prov:JOSE MARIA HUGHES MD 09/13/18 Albuterol Sulfate* (Proair HFA*) 8.5 Gm Hfa.aer.ad, 2 PUFF INH Q6H PRN for WHEEZING AND SOB, #1 INHALER Prov:LAKESHIA SPRINGER MD 08/07/18 Cetirizine Hcl* (Zyrtec*) 10 Mg Capsule, 10 MG PO DAILY, #30 TAB.CHEW Prov:LIBBY FLORES PA-C 03/27/18 Albuterol Sulfate* (Proair HFA*) 8.5 Gm Hfa.aer.ad, 2 PUFF INH Q4, #1 INHALER Prov:DONTAE GRANADOS PA-C 09/24/17 Reported Medications Salmeterol Xinaf-Fluticasone* (Advair*) 1 Inh Inha, 1 PUFF INH BID, INH 03/10/14 Allergies Allergies: Coded Allergies: No Known Allergy (Verified , 10/10/18) PMhx/Soc History of Surgery: Yes (GALL STONES,C/S) Anesthesia Reaction: No Hx Neurological Disorder: No Hx Respiratory Disorders: Yes (asthma, bronchitis ) Hx Cardiac Disorders: No Hx Psychiatric Problems: No Hx Miscellaneous Medical Probl: No Hx Alcohol Use: No Hx Substance Use: No Hx Tobacco Use: No Physical Exam Vitals Physical Exam Const: No acute distress Head: Atraumatic Eyes: Normal Conjunctiva ENT: Normal External Ears, Nose and Mouth. Neck: Full range of motion. No meningismus. Resp: Clear to auscultation bilaterally Cardio: Regular rate and rhythm, no murmurs Abd: Soft, non tender, non distended. Normal bowel sounds. Has right upper abdominal tenderness. Examined with female garment sewing machine operator. No vesicular lesions. No CVA tenderness. There is no right lower abdominal tenderness. Ambulatory with steady gait. Skin: No petechiae or rashes. Back: No midline or flank tenderness Ext: No cyanosis, or edema Neur: Awake and alert. No neurological deficits. Psych: Normal Mood and Affect Results 24 hrs Laboratory Tests Test 03/16/19 01:21 03/16/19 01:39 White Blood Count 12.7 10^3/ul Red Blood Count 4.74 10^6/ul Hemoglobin 14.4 g/dl Hematocrit 43.2 % Mean Corpuscular Volume 91.1 fl Mean Corpuscular Hemoglobin 30.4 pg Mean Corpuscular Hemoglobin Concent 33.3 g/dl Red Cell Distribution Width 12.3 % Platelet Count 389 10^3/UL Mean Platelet Volume 9.3 fl Immature Granulocytes % 0.700 % Neutrophils % 63.1 % Lymphocytes % 24.8 % Monocytes % 8.7 % Eosinophils % 2.5 % Basophils % 0.2 % Nucleated Red Blood Cells % 0.0 /100WBC Immature Granulocytes # 0.090 10^3/ul Neutrophils # 8.0 10^3/ul Lymphocytes # 3.1 10^3/ul Monocytes # 1.1 10^3/ul Eosinophils # 0.3 10^3/ul Basophils # 0.0 10^3/ul Nucleated Red Blood Cells # 0.0 10^3/ul Urine Color YELLOW Urine Clarity SLIGHTLY CLOUDY Urine pH 6.0 Urine Specific Milo 1.023 Urine Ketones TRACE mg/dL Urine Nitrite NEGATIVE mg/dL Urine Bilirubin NEGATIVE mg/dL Urine Urobilinogen 1+ mg/dL Urine Leukocyte Esterase NEGATIVE Dio/ul Urine Microscopic RBC 14 /HPF Urine Microscopic WBC 3 /HPF Urine Squamous Epithelial Cells FEW /HPF Urine Hemoglobin 1+ mg/dL Urine Glucose NEGATIVE mg/dL Urine Total Protein NEGATIVE mg/dl Sodium Level 139 mmol/L Potassium Level 3.8 mmol/L Chloride Level 103 mmol/L Carbon Dioxide Level 28 mmol/L Anion Gap 8 Blood Urea Nitrogen 22 mg/dl Creatinine 0.70 mg/dl Est Glomerular Filtrat Rate mL/min > 60 mL/min Glucose Level 136 mg/dl Calcium Level 9.0 mg/dl Total Bilirubin 0.6 mg/dl Direct Bilirubin 0.00 mg/dl Indirect Bilirubin 0.6 mg/dl Aspartate Amino Transf (AST/SGOT) 20 IU/L Alanine Aminotransferase (ALT/SGPT) 30 IU/L Alkaline Phosphatase 72 IU/L Total Protein 7.0 g/dl Albumin 3.9 g/dl Globulin 3.10 g/dl Albumin/Globulin Ratio 1.25 Amylase Level 74 U/L Lipase 101 U/L POC Beta HCG, Qualitative NEGATIVE Current Medications Medications Dose Sig/Love Start Time Status Last (Trade) Ordered Route PRN Stop Time Admin Dose Reason Admin Sodium 1,000 ml @ Q1H ONCE 03/16/19 DC 03/16/19 Chloride 1,000 mls/hr IV 01:30 01:34 03/16/19 02:29 Ondansetron 4 mg ONCE STAT 03/16/19 DC 03/16/19 HCl (Zofran IV 01:09 01:29 Inj) 03/16/19 01:14 Morphine 4 mg ONCE STAT 03/16/19 DC 03/16/19 Sulfate IV 01:09 01:30 (morphine) 03/16/19 01:14 1 mg ONCE STAT 03/16/19 DC 03/16/19 Hydromorphone IV 02:28 02:34 HCl 03/16/19 02:29 (Dilaudid) Procedures/MDM Diagnostic tests: POC urine : Negative. Blood works: Reviewed. Chest x-ray: Hypoinflation of the lungs and mild bibasilar atelectasis. Ultrasound of the gallbladder: Minimal diffuse increased hepatic echogenicity most suggestive of mild hepatic steatosis is again seen. The length of the right lobe of the liver equals 18.3 cm suggestive of mild hepatomegaly with the liver mildly larger than on the previous study. Cholelithiasis again seen with interval increase in number of gallstones since previous study. Minimal diffuse gallbladder wall thickening with thickness approximate 3.2 mm appearing since the previous study. Treatment: Saline lock. Normal saline IV bolus. Zofran IV. Morphine IV. Dilaudid IV. Re-evaluation: Denies pain. Negative Caruso sign. Negative Imani sign (heel jar test). Negative psoas sign. Negative Rovsing sign. No CVA tenderness. Able to jump 5 times without developing lower abdominal pain. Differential diagnosis I have low suspicion for pancreatitis, cholecystitis, diverticulitis, pneumonia, appendicitis, bowel obstruction, nephrolithiasis, septic stone, obstructing kidney stones, sepsis. This case was discussed with my supervising physician, Dr. Rachid Araujo who agreed with my medical decision making. Final diagnosis: Biliary colic. Prescription: Bentyl. Naprosyn. Tramadol. Zofran. Omeprazole. Follow-up with PCP in the next 24-48 hours. Come back here in the emergency de partment for any new symptoms or any worsening symptoms. All questions and concerns were answered. Patient and family members verbalized understanding and agreed with plan of care. Hemodynamically stable on discharge. Departure Diagnosis: Primary Impression: Abdominal pain Additional Impression: Biliary colic Condition: Stable Additional Instructions: Follow-up with PCP in the next 24-48 hours. Come back here in the emergency department for any new symptoms or any worsening symptoms. MIRIAN LOZANO March 16, 2019 01:09
[2019-03-16] MEDS ORDERED: SOD CHLORIDE 0.9% 1,000 ML IV ONE (01:30)
[2019-03-16] MEDS ORDERED: HYDROmorphONE 2 MG/ML SYG IV STA (02:28)
[2019-03-16] MEDS ORDERED: NAPR-985 PO (03:52)
[2019-03-16] MEDS ORDERED: ONDA4TAB8 PO (03:53)
[2019-03-16] MEDS ORDERED: TRAM50TA2 PO (03:53)
[2019-03-16] MEDS ORDERED: DICY10CA40 PO (03:53)
[2019-03-16] MEDS ORDERED: OMEP40CA6 PO (03:53)
[2019-03-16 04:40] VITALS: BP 125/66; PULSE 107; RESP 18
== END 2019-03-16 04:42 | disposition home or self-care (01) ==
LOC: FTE 23:18
DX: K80.50 Calculus of bile duct without cholangitis or cholecystitis without obstruction (principal); J45.909 Unspecified asthma, uncomplicated
CPT/HCPCS: 36415; 71046; 76705; 80053; 81001; 81025; 82150; 83690; 85025; 87086; 96374; 96375; J1170; J2270; J2405; J7030; Z7502

== ENCOUNTER 2019-06-13 08:28 | Emergency (ER) | payer MEDICAID ==
[~2019-06-13] VITALS: Ht 154.9 cm; Wt 91.0 kg
[~2019-06-13 08:28] MED LIST changes: +DICY10CA40 PO; +NAPR-985 PO; +OMEP40CA6 PO; +ONDA4TAB8 PO; +TRAM50TA2 PO
[2019-06-13 08:31] VITALS: BP 108/68; Ht 154.9 cm; Wt 91.0 kg
[2019-06-13] MEDS ORDERED: IPRATROPIUM (NEB) 0.5 MG/2.5 ML AMP NEB STA (08:54)
[2019-06-13] MEDS ORDERED: DEXAMETHASONE 10 MG/ML 1 ML INJ IM STA (08:54)
[2019-06-13] MEDS ORDERED: ALBUTEROL 0.083% (NEB) 2.5 MG/3 ML AMP NEB STA (08:54)
[2019-06-13 10:46] VITALS: PULSE 82; RESP 19
== END 2019-06-13 10:46 | disposition home or self-care (01) ==
LOC: FTE 08:28
DX: J45.901 Unspecified asthma with (acute) exacerbation (principal)
CPT/HCPCS: 94664; 96372; J1100; Z7502; Z7610

== ENCOUNTER 2019-08-15 18:44 | Emergency (ER) | payer MEDICAID ==
[~2019-08-15] VITALS: Ht 157.5 cm; Wt 89.2 kg
[~2019-08-15 18:44] MED LIST changes: +OMEP40CA38 PO; -OMEP40CA6 PO; +PROM5SYR2 PO
[2019-08-15 18:48] VITALS: Ht 157.5 cm; Wt 89.2 kg
[2019-08-15] MEDS ORDERED: predniSONE 20 MG TAB PO STA (19:28)
[2019-08-15] MEDS ORDERED: IPRATROPIUM (NEB) 0.5 MG/2.5 ML AMP NEB STA (19:28)
[2019-08-15] MEDS ORDERED: ALBUTEROL 0.083% (NEB) 2.5 MG/3 ML AMP NEB STA (19:28)
[2019-08-15 22:05] VITALS: BP 125/60; PULSE 79; RESP 20
== END 2019-08-15 22:05 | disposition home or self-care (01) ==
LOC: E/R 18:44
DX: J45.901 Unspecified asthma with (acute) exacerbation (principal)
CPT/HCPCS: 71045; 81025; 94644; J7512; Z7502; Z7610